=== PATIENT | male | born 1945 | race Caucasian/White ===

== ENCOUNTER 2019-06-04 17:49 | Inpatient (IN) | payer BC, MEDICARE ==
[~2019-06-04] VITALS: Ht 172.7 cm; Wt 75.9 kg
[~2019-06-04 17:49] MED LIST: ESOM20CA PO
[2019-06-04] MEDS ORDERED: NS IV 1000 ML 1,000 ML IV SCH ×2 (18:04→20:31)
--- NOTE | 2019-06-04 18:11 | ED Abdominal Pain ---
General Chief Complaint: Abdominal/GI Problems Stated Complaint: ABDOMEN PAIN History of Present Illness Date Seen by Provider: Jun 04, 2019 Time Seen by Provider: 18:00 Initial Comments 74 year old male presents with jordyn-umbilical abdominal pain that started at 1400 today. Patient reports eating lunch, he was having no abdominal pain, diarrhea or nausea. Denies any chronic history of abdominal problems. He had a normal bowel movement this morning. Timing/Duration: 1-3 Hours Severity/Quality: Moderate Location: Periumbilical Radiation: No Radiation Modifying Factors: Improves With Antacids (took Gaviscon 3 doses since 1400) Associated Symptoms: Denies Symptoms Allergies and Home Medications Allergies Coded Allergies: No Known Drug Allergies (Unverified , 12/24/15) Home Medications Esomeprazole Magnesium 20 Mg Capsule.dr, 20 MG PO DAILY, (Reported) Patient Home Medication List Home Medication List Reviewed: Yes Review of Systems Review of Systems Constitutional: no symptoms reported, see HPI Gastrointestinal: See HPI, Abdominal Pain; Denies Diarrhea, Denies Nausea, Denies Vomiting All Other Systems Reviewed Negative Unless Noted: Yes Past Glyjazh-Qnlxmc-Bjnnbm Hx Past Med/Social Hx: Reviewed Nursing Past Med/Soc Hx Patient Social History Alcohol Use: Regular Use Alcohol Beverage of Choice: Wine Recreational Drug Use: No Smoking Status: Never a Smoker Recent Hopitalizations: No Physical Abuse: No Sexual Abuse: No Mistreated: No Fear: No Immunizations Up To Date Date of Influenza Vaccine: Dec 18, 2015 Seasonal Allergies Seasonal Allergies: No Past Medical History Surgeries: Yes (BILAT INGUINAL HERNIA) Tonsillectomy Respiratory: No Cardiac: No Neurological: No Reproductive Disorders: No Sexually Transmitted Disease: No HIV/AIDS: No Gastrointestinal: Yes Gastroesophageal Reflux, Irritable Bowel Musculoskeletal: No Endocrine: Yes (BOARDERLING DIABETIC) Loss of Vision: Bilateral Hearing Impairment: Denies Cancer: No Psychosocial: No Integumentary: No Blood Disorders: No Adverse Reaction/Blood Tranf: No (N/A) Physical Exam Vital Signs Vital Signs - First Documented 06/04/19 06/04/19 18:03 19:17 Temp 36.9 Pulse 103 Resp 20 B/P (MAP) 166/102 (123) Pulse Ox 97 O2 Delivery Room Air Capillary Refill : Height/Weight/BMI Height: 5'8.00" Weight: 166lbs. 0.0oz. 75.135457gb; 25.2 BMI Method: General Appearance: WD/WN, no apparent distress HEENT: PERRL/EOMI, normal ENT inspection, TMs normal, pharynx normal Neck: non-tender, full range of motion, supple, normal inspection Respiratory: chest non-tender, lungs clear, normal breath sounds Cardiovascular: normal peripheral pulses, regular rate, rhythm, no edema Gastrointestinal: normal bowel sounds, soft, no pulsatile mass; No distended, No guarding, No rebound; tenderness (jordyn-umbilical ); No hernia, No mass Extremities: normal range of motion, non-tender, normal inspection, normal capillary refill Neurologic/Psychiatric: no motor/sensory deficits, alert, normal mood/affect, oriented x 3 Skin: normal color, warm/dry Lymphatic: no adenopathy Progress/Results/Core Measures Results/Orders Lab Results Laboratory Tests Test 06/04/19 18:04 06/04/19 18:39 Range/Units White Blood Count 11.8 H 4.3-11.0 10^3/uL Red Blood Count 4.71 4.35-5.85 10^6/uL Hemoglobin 15.2 13.3-17.7 G/DL Hematocrit 44 40-54 % Mean Corpuscular Volume 93 80-99 FL Mean Corpuscular Hemoglobin 32 25-34 PG Mean Corpuscular Hemoglobin Concent 35 32-36 G/DL Red Cell Distribution Width 13.4 10.0-14.5 % Platelet Count 229 130-400 10^3/uL Mean Platelet Volume 8.8 7.4-10.4 FL Neutrophils (%) (Auto) 84 H 42-75 % Lymphocytes (%) (Auto) 10 L 12-44 % Monocytes (%) (Auto) 6 0-12 % Eosinophils (%) (Auto) 0 0-10 % Basophils (%) (Auto) 0 0-10 % Neutrophils # (Auto) 9.9 H 1.8-7.8 X 10^3 Lymphocytes # (Auto) 1.2 1.0-4.0 X 10^3 Monocytes # (Auto) 0.7 0.0-1.0 X 10^3 Eosinophils # (Auto) 0.0 0.0-0.3 10^3/uL Basophils # (Auto) 0.0 0.0-0.1 10^3/uL Erythrocyte Sedimentation Rate 6 0-30 MM/HR D-Dimer 1.03 H 0.00-0.49 UG/ML Sodium Level 137 135-145 MMOL/L Potassium Level 3.8 3.6-5.0 MMOL/L Chloride Level 98 98-107 MMOL/L Carbon Dioxide Level 28 21-32 MMOL/L Anion Gap 11 5-14 MMOL/L Blood Urea Nitrogen 14 7-18 MG/DL Creatinine 1.28 0.60-1.30 MG/DL Estimat Glomerular Filtration Rate 55 BUN/Creatinine Ratio 11 Glucose Level 246 H 70-105 MG/DL Calcium Level 9.7 8.5-10.1 MG/DL Corrected Calcium 8.5-10.1 MG/DL Total Bilirubin 0.6 0.1-1.0 MG/DL Aspartate Amino Transf (AST/SGOT) 22 5-34 U/L Alanine Aminotransferase (ALT/SGPT) 22 0-55 U/L Alkaline Phosphatase 52 40-136 U/L Lactate Dehydrogenase 189 125-220 U/L C-Reactive Protein High Sensitivity 0.13 0.00-0.50 MG/DL Total Protein 7.4 6.4-8.2 GM/DL Albumin 4.6 H 3.2-4.5 GM/DL Amylase Level 42 25-125 U/L Lipase 7 L 8-78 U/L Procalcitonin 0.02 <0.10 NG/ML Urine Color YELLOW Urine Clarity CLOUDY H Urine pH 8.0 5-9 Urine Specific [place] 1.020 1.016-1.022 Urine Protein NEGATIVE NEGATIVE Urine Glucose (UA) NEGATIVE NEGATIVE Urine Ketones 1+ H NEGATIVE Urine Nitrite NEGATIVE NEGATIVE Urine Bilirubin NEGATIVE NEGATIVE Urine Urobilinogen 0.2 < = 1.0 MG/DL Urine Leukocyte Esterase NEGATIVE NEGATIVE Urine RBC (Auto) NEGATIVE NEGATIVE Urine RBC NONE /HPF Urine WBC NONE /HPF Urine Squamous Epithelial Cells NONE /HPF Urine Crystals PRESENT H /LPF Urine Amorphous Sediment MOD STEPHEN PHOSPHATE H /LPF Urine Bacteria TRACE /HPF Urine Casts NONE /LPF Urine Mucus NEGATIVE /LPF Urine Culture Indicated NO My Orders Orders - KATHARINE PATEL Comprehensive Metabolic Panel (06/04/19 18:04) Lipase (06/04/19 18:04) Amylase (06/04/19 18:04) Ua Culture If Indicated (06/04/19 18:04) Cbc With Automated Diff (3/30/20 18:04) Ed Iv/Invasive Line Start (06/04/19 18:04) Ns Iv 1000 Ml (Sodium Chloride 0.9%) (06/04/19 18:04) Ferritin (06/04/19 18:36) Fibrin Degradation Products (06/04/19 18:36) Procalcitonin (Pct) (06/04/19 18:36) Hs C Reactive Protein (06/04/19 18:36) Erythrocyte Sedimentation Rate (06/04/19 18:36) LDH (06/04/19 18:36) Metoclopramide Oral Liquid (Reglan Oral (06/04/19 18:40) Ct Abdomen/Pelvis W (06/04/19 19:10) Pantoprazole Injection (Protonix Injecti (06/04/19 19:30) Iohexol Injection (Omnipaque 350 Mg/Ml 1 (06/04/19 19:30) Received Contrast (Hold Metformin- Contr (06/04/19 19:30) Ns (Ivpb) (Sodium Chloride 0.9% Ivpb Bag (06/04/19 19:30) Ondansetron Injection (Zofran Injectio (06/04/19 20:00) Ed Iv/Invasive Line Start (06/04/19 20:31) Ns Iv 1000 Ml (Sodium Chloride 0.9%) (06/04/19 20:31) Fentanyl Injection (Sublimaze Injection (06/04/19 20:45) Medications Given in ED Current Medications Medications Dose Ordered Sig/Amie Route Start Time Stop Time Status Last Admin Dose Admin Iohexol 100 ml ONCE ONCE IV 06/04/19 19:30 06/04/19 19:31 DC 06/04/19 19:42 100 ML Ondansetron HCl 4 mg ONCE ONCE IVP 06/04/19 20:00 06/04/19 20:01 DC 06/04/19 19:57 4 MG Pantoprazole 40 mg ONCE ONCE IV 06/04/19 19:30 06/04/19 19:31 DC 06/04/19 19:57 40 MG Sodium Chloride 100 ml ONCE ONCE IV 06/04/19 19:30 06/04/19 19:31 DC 06/04/19 19:42 80 ML Vital Signs/I&O 06/04/19 06/04/19 18:03 19:17 Temp 36.9 Pulse 103 97 Resp 20 18 B/P (MAP) 166/102 (123) 150/91 (110) Pulse Ox 97 99 O2 Delivery Room Air Progress Progress Note : Time: 18:00 Progress Note patient seen and evaluated, will obtain labs and re-evaluate. Normal saline 1 L per IV. Reglan 10 mg orally. [address] of the abdomen with contrast. Protonix 40 mg IV 1944 patient complaining of nausea and vomited one time, will give Zofran [address] results reviewed with the patient, he does report the nausea is better. His pain is worse, will give fentanyl 50 g IV. [address] Tabares per phone, agreed with plan for admission. Spoke to Dr. Chan agreed to consult. 2049 patient reports nausea and pain have improved. We'll continue to give IV f luids and keep nothing by mouth. Diagnostic Imaging Diagonstic Imaging: CT Plain Films/CT/US/NM/MRI: abdomen Comments NAME: JAKE WILLIS Richard [facility] REC#: [id number] PT STATUS: REG ER : 1945 PHYSICIAN: KATHARINE PATEL ADMIT DATE: 06/04/19/ER Signed Date of Exam:06/04/19 CT ABDOMEN/PELVIS W EXAMINATION: CT Abdomen and Pelvis with intravenous contrast. TECHNIQUE: Multiple contiguous axial images were obtained through the abdomen and pelvis after the uneventful administration of intravenous contrast. All CT scans use one or more of the following dose optimizing techniques: automated exposure control, MA and/or KvP adjustment based on a patient size and exam type, or iterative reconstruction. HISTORY: Lower abdominal and pelvic pain. COMPARISON: None available. FINDINGS: The heart is unremarkable. A calcified granuloma is seen in the left lung base. No focal consolidation or suspicious nodules. Dilated loops of small bowel are seen in the mid abdomen. A possible transition point is seen in the mid abdomen just left of midline (image 56 series 2). A small amount of reactive free fluid is seen in the left paracolic gutter. No free air. Stool is seen in the colon. The stomach is distended with ingested contents. The liver, spleen, pancreas, adrenal glands, and kidneys have a normal appearance. A small cyst is seen in the spleen. There is no pathologically enlarged mesenteric or retroperitoneal adenopathy. No acute osseous abnormalities. There is grade 1 anterolisthesis of L4 on L5. Ureters and bladder are grossly normal. There is no free air, loculated collection, or adenopathy in the pelvis. IMPRESSION: 1. Findings consistent with early small bowel obstruction with possible transition point in the mid abdomen just left of midline. A small amount of reactive free fluid is seen in the left paracolic gutter. No free air. Dictated by: Dictated on workstation # [id number] Dict: 06/04/191952 Trans: 06/04/192006 [facility] [id number] Interpreted by: SLOAN BROWNING DO Electronically signed by: SLOAN BROWNING DO 06/04/192006 Reviewed: Reviewed by Me Departure Impression Primary Impression: Small bowel obstruction Additional Impression: Pain in the abdomen Qualified Codes: R10.33 - Periumbilical pain Disposition: ADMITTED INPATIENT Condition: Stable Admissions Decision to Admit Reason: Admit from ER (General) Decision to Admit/Date: Jun 04, 2019 Time/Decision to Admit Time: 20:30 Departure-Patient Inst. Referrals: CYRUS TABARES MD (PCP/Family) Primary Care Physician Copy Copies To 1: CYRUS TABARES MD Copies To 2: KACEY CHAN AMY ARNP Jun 04, 2019 18:11
[2019-06-04 18:12] LABS: BASOPHILS % (AUTO) 0 % (0-10); EOSINOPHILS % (AUTO) 0 % (0-10); HEMATOCRIT 44 % (40-54); HEMOGLOBIN 15.2 G/DL (13.3-17.7); LYMPHOCYTES # (AUTO) 1.2 X 10^3 (1.0-4.0); LYMPHOCYTES % (AUTO) 10 % (12-44); MEAN CORPUSCULAR HEMOGLOBIN 32 PG (25-34); MEAN CORPUSCULAR HGB CONC 35 G/DL (32-36); MEAN CORPUSCULAR VOLUME 93 FL (80-99); MEAN PLATELET VOLUME 8.8 FL (7.4-10.4); MONOCYTES # (AUTO) 0.7 X 10^3 (0.0-1.0); MONOCYTES % (AUTO) 6 % (0-12); NEUTROPHILS # (AUTO) 9.9 X 10^3 (1.8-7.8); NEUTROPHILS % (AUTO) 84 % (42-75); PLATELET COUNT 229 10^3/uL (130-400); RED CELL DISTRIBUTION WIDTH 13.4 % (10.0-14.5); WHITE BLOOD COUNT 11.8 10^3/uL (4.3-11.0)
[2019-06-04 18:32] LABS: ALANINE AMINOTRANSFERASE 22 U/L (0-55); ALBUMIN 4.6 GM/DL (3.2-4.5); ALKALINE PHOSPHATASE 52 U/L (40-136); AMYLASE 42 U/L (25-125); BILIRUBIN,TOTAL 0.6 MG/DL (0.1-1.0); BUN/CREATININE RATIO 11; CALCIUM 9.7 MG/DL (8.5-10.1); CARBON DIOXIDE 28 MMOL/L (21-32); CHLORIDE 98 MMOL/L (98-107); CREATININE SERUM 1.28 MG/DL (0.60-1.30); GFR ESTIMATED 55; GLUCOSE 246 MG/DL (70-105); LIPASE 7 U/L (8-78); POTASSIUM 3.8 MMOL/L (3.6-5.0); SODIUM 137 MMOL/L (135-145); TOTAL PROTEIN 7.4 GM/DL (6.4-8.2)
[2019-06-04] MEDS ORDERED: METOCLOPRAMIDE 10MG/10ML ORAL SOL(REGLAN) UDC PO STA (18:40)
[2019-06-04 18:48] LABS: BILIRUBIN,URINE NEGATIVE (NEGATIVE); COLOR,URINE YELLOW; GLUCOSE, URINE (UA) NEGATIVE (NEGATIVE); KETONES,URINE 1+ (NEGATIVE); LEUKOCYTE ESTERASE ,URINE NEGATIVE (NEGATIVE); NITRITE,URINE NEGATIVE (NEGATIVE); PROTEIN,URINE NEGATIVE (NEGATIVE)
[2019-06-04 18:53] LABS: CLARITY,URINE CLOUDY
[2019-06-04 18:54] LABS: AMORPHOUS SEDIMENT,UR MOD AMOR PHOSPHATE /LPF; BACTERIA,URINE TRACE /HPF
[2019-06-04 19:17] VITALS: BP 150/91
[2019-06-04] MEDS ORDERED: HOLD METFORMIN - RECEIVED CONTRAST 20 ML VIAL IV SCH (19:30)
[2019-06-04] MEDS ORDERED: PANTOPRAZOLE 40 MG (PROTONIX) VIAL IV ONE (19:30)
[2019-06-04] MEDS ORDERED: IOHEXOL 350 MG/ML 100 ML (OMNIPAQUE 350) VIAL IV ONE (19:30)
[2019-06-04] MEDS ORDERED: NS 100 ML (IVPB) BAG IV ONE (19:30)
[2019-06-04] MEDS ORDERED: ONDANSETRON 4 MG/2 ML (SDV) Z0FRAN IVP ONE (20:00)
--- NOTE | 2019-06-04 20:03 | Diagnostic Imaging Report ---
EXAMINATION: CT Abdomen and Pelvis with intravenous contrast. TECHNIQUE: Multiple contiguous axial images were obtained through the abdomen and pelvis after the uneventful administration of intravenous contrast. All CT scans use one or more of the following dose optimizing techniques: automated exposure control, MA and/or KvP adjustment based on a patient size and exam type, or iterative reconstruction. HISTORY: Lower abdominal and pelvic pain. COMPARISON: None available. FINDINGS: The heart is unremarkable. A calcified granuloma is seen in the left lung base. No focal consolidation or suspicious nodules. Dilated loops of small bowel are seen in the mid abdomen. A possible transition point is seen in the mid abdomen just left of midline (image 56 series 2). A small amount of reactive free fluid is seen in the left paracolic gutter. No free air. Stool is seen in the colon. The stomach is distended with ingested contents. The liver, spleen, pancreas, adrenal glands, and kidneys have a normal appearance. A small cyst is seen in the spleen. There is no pathologically enlarged mesenteric or retroperitoneal adenopathy. No acute osseous abnormalities. There is grade 1 anterolisthesis of L4 on L5. Ureters and bladder are grossly normal. There is no free air, loculated collection, or adenopathy in the pelvis. IMPRESSION: 1. Findings consistent with early small bowel obstruction with possible transition point in the mid abdomen just left of midline. A small amount of reactive free fluid is seen in the left paracolic gutter. No free air. Dictated by: Dictated on workstation # [id number]
[2019-06-04] MEDS ORDERED: fentaNYL INJECTION 100 MCG/2 ML AMP IVP ONE (20:45)
--- NOTE | 2019-06-04 20:57 | NUR ---
pt daughter arely [phone] called et. informed of admission to room 409
--- NOTE | 2019-06-04 21:10 | NUR ---
JAKE WILLIS admitted to room 409-1, with an admitting diagnosis of SMALL BOWEL OBSTRUCION, on 06/04/19 from ED via CART, accompanied by STAFF.JAKE WILLIS introduced to surroundings, call light, bed controls, phone, TV, temperature control, lights, meal times, smoking policy, visitor policy, side rail policy, bathrooms and showers. Patient Rights given to patient in the handbook. JAKE WILLIS verbalizes understanding that [facility] is not responsible for the loss or damage to any personal effects or valuables that are kept in the patients posession during their hospitalization.
[2019-06-04] MEDS: NS IV 1000 ML 1,000 ML IV SCH (21:29)
[2019-06-04] MEDS ORDERED: ONDANSETRON 4 MG/2 ML (SDV) Z0FRAN IV PRN (21:30)
[2019-06-04] MEDS: fentaNYL INJECTION 100 MCG/2 ML AMP IV PRN ×2 (21:34→23:55)
[2019-06-04 21:42] VITALS: BP 161/95
--- NOTE | 2019-06-04 23:44 | Consultation - Surgery ---
History of Present Illness History of Present Illness Patient Consulted On(rah/time) 06/04/19 23:44 Date Seen by Provider: Jun 04, 2019 Time Seen by Provider: 23:44 History of Present Illness Consult requested by Dr. Tabares for sbo Patient is a 74 year old male that began having abdominal pain earlier today. Severe pain around umbilical region. No radiation of pain. Constant. At worse was rating at 10/10. Currently about an 8. Having some nausea and one emesis. Patient states nothing is really making better. Nothing really making worse. Abdomen is more distended. than normal. Denies fever sweats chills shortness of breath or chest pain. Had ct scan showing small bowel with some dilated loop of small bowel with possible transition point, dilated stomach. Allergies and Home Medications Allergies Coded Allergies: No Known Drug Allergies (Unverified , 12/24/15) Home Medications Calcium Carbonate 500 Mg Tablet, 500 MG PO DAILY, (Reported) Cholecalciferol (Vitamin D3) 25 Mcg Capsule, 25 MCG PO DAILY, (Reported) Glucosamine Sulfate 2Kcl 1,000 Mg Tablet, 1,000 MG PO DAILY, (Reported) Multivitamin 1 Each Tablet, 1 EACH PO DAILY, (Reported) Vitamin B Complex 1 Each Tablet, 1 EACH PO DAILY, (Reported) Patient Home Medication List Home Medication List Reviewed: Yes Past Pqgyynq-Mdepsi-Ifgrvm Hx Patient Social History Alcohol Use: Regular Use Recreational Drug Use: No Smoking Status: Never a Smoker Recent Foreign Travel: No Contact w/Someone Who Travel: No Recent Infectious Disease Expo: No Recent Hopitalizations: No Immunizations Up To Date Date of Influenza Vaccine: Dec 18, 2015 Seasonal Allergies Seasonal Allergies: No Surgeries History of Surgeries: Yes (BILAT INGUINAL HERNIA) Surgeries: Tonsillectomy Respiratory History of Respiratory Disorde: No Cardiovascular History of Cardiac Disorders: No Neurological History of Neurological Disord: No Reproductive System Hx Reproductive Disorders: No Sexually Transmitted Disease: No HIV/AIDS: No Gastrointestinal History of Gastrointestinal Di: Yes Gastrointestinal Disorders: Gastroesophageal Reflux, Irritable Bowel Musculoskeletal History of Musculoskeletal Dis: No Endocrine History of Endocrine Disorders: Yes (BOARDERLING DIABETIC) HEENT Loss of Vision: Bilateral Hearing Impairment: Denies Cancer History of Cancer: No Psychosocial History of Psychiatric Problem: No Integumentary History of Skin or Integumenta: No Blood Transfusions History of Blood Disorders: No Adverse Reaction to a Blood Tr: No (N/A) Family Medical History Significant Family History: No Pertinent Family Hx Review of Systems-General Constitutional: No chills, No diaphoresis, No fever EENTM: No blurred vision, No double vision, No mouth pain, No throat pain Respiratory: No cough, No dyspnea on exertion Cardiovascular: No chest pain, No palpitations Gastrointestinal: abdominal pain; No nausea, No vomiting Genitourinary: No decreased output, No discharge Musculoskeletal: No back pain, No gout, No joint pain Skin: No change in color, No change in hair/nails Psychiatric/Neurological: Denies Anxiety, Denies Depressed, Denies Emotional Problems Physical Exam-General Problems Physical Exam Vital Signs Vital Signs - First Documented 06/04/19 06/04/19 18:03 19:17 Temp 36.9 Pulse 103 Resp 20 B/P (MAP) 166/102 (123) Pulse Ox 97 O2 Delivery Room Air Capillary Refill : Less Than 3 Seconds General Appearance: WD/WN, no apparent distress HEENT: PERRL/EOMI, normal ENT inspection Neck: full range of motion, supple, normal inspection Respiratory: chest non-tender, no respiratory distress, no accessory muscle use Cardiovascular: regular rate, rhythm Gastrointestinal: no organomegaly, distended, tenderness (periumbilical) Rectal: deferred Back: no CVA tenderness, no vertebral tenderness Extremities: non-tender, normal inspection Neurologic/Psychiatric: lead printer II-XII nml as tested, no motor/sensory deficits, alert, normal mood/affect, oriented x 3 Skin: normal color, warm/dry Lymphatic: no adenopathy Data Review Labs Laboratory Tests 06/04/19 18:04: White Blood Count 11.8H, Red Blood Count 4.71, Hemoglobin 15.2, Hematocrit 44, Mean Corpuscular Volume 93, Mean Corpuscular Hemoglobin 32, Mean Corpuscular Hemoglobin Concent 35, Red Cell Distribution Width 13.4, Platelet Count 229, Mean Platelet Volume 8.8, Neutrophils (%) (Auto) 84H, Lymphocytes (%) (Auto) 10L , Monocytes (%) (Auto) 6, Eosinophils (%) (Auto) 0, Basophils (%) (Auto) 0, Neutrophils # (Auto) 9.9H, Lymphocytes # (Auto) 1.2, Monocytes # (Auto) 0.7, Eosinophils # (Auto) 0.0, Basophils # (Auto) 0.0, Erythrocyte Sedimentation Rate 6, D-Dimer 1.03H, Sodium Level 137, Potassium Level 3.8, Chloride Level 98, Carbon Dioxide Level 28, Anion Gap 11, Blood Urea Nitrogen 14, Creatinine 1.28, Estimat Glomerular Filtration Rate 55, BUN/Creatinine Ratio 11, Glucose Level 246H, Calcium Level 9.7, Corrected Calcium , Total Bilirubin 0.6, Aspartate Amino Transf (AST/SGOT) 22, Alanine Aminotransferase (ALT/SGPT) 22, Alkaline Phosphatase 52, Lactate Dehydrogenase 189, C-Reactive Protein High Sensitivity 0.13, Total Protein 7.4, Albumin 4.6H, Amylase Level 42, Lipase 7L, Procalcitonin 0.02 06/04/19 18:39: Urine Color YELLOW, Urine Clarity CLOUDYH, Urine pH 8.0, Urine Specific [place] 1.020, Urine Protein NEGATIVE, Urine Glucose (UA) NEGATIVE, Urine Ketones 1+H, Urine Nitrite NEGATIVE, Urine Bilirubin NEGATIVE, Urine Urobilinogen 0.2, Urine Leukocyte Esterase NEGATIVE, Urine RBC (Auto) NEGATIVE, Urine RBC NONE, Urine WBC NONE, Urine Squamous Epithelial Cells NONE, Urine Crystals PRESENTH, Urine Amorphous Sediment MOD STEPHEN PHOSPHATEH, Urine Bacteria TRACE, Urine Casts NONE, Urine Mucus NEGATIVE, Urine Culture Indicated NO Assessment/Plan Assessment/Plan Assessment/Plan periumbilical abdominal pain nausea/vomiting partial small bowel obstruction NPO IV hydration Insert NG tube to LIWS small bowel follow through tomorrow conservative measures, may need surgical intervention. Clinical Quality Measures DVT/VTE Risk/Contraindication: Risk Factor Score Per Nursin RFS Level Per Nursing on Admit: 4+=Very High KACEY CHAN DO Jun 04, 2019 23:44
--- NOTE | 2019-06-04 23:45 | NUR ---
DR CHAN MADE ROUNDS TO VISIT PT SHANIKA AT 9645. EXPLAINED TO PT AND RN THAT HIS STOMACH IS VERY LARGE AT THIS TIME AND PT NEEDS NG TUBE PLACED.
[2019-06-04 23:58] VITALS: BP 128/77
--- NOTE | 2019-06-05 00:40 | NUR ---
DENTAL TECHNOLOGIST, MOUNIKA, PLACED NG TUBE. THIS RN LISTENED FOR SOUNDS OF CORRECT PLACEMENT. ORDER FOR 1 VIEW XRAY TO CHECK PLACEMENT. PT TOLERATED WELL. STOMACH CONTENTS ARE EMPTYING INTO CANISTER AND SUCTIONS IS AT LOW INTERMITTENT. WILL CONTINUE TO MONITOR.
[2019-06-05] MEDS: fentaNYL INJECTION 100 MCG/2 ML AMP IV PRN ×3 (01:17→09:58)
[2019-06-05] MEDS ORDERED: morphine INJ 4 MG/ML 1 ML (VIAL/SYRINGE) ONE (01:59)
[2019-06-05] MEDS ORDERED: morphine INJ 10 MG/ML 1ML (SYR OR VIAL) IVP STA (02:02)
--- NOTE | 2019-06-05 02:40 | NUR ---
DR CHAN NOTIFIED AT 0200 THAT PT CONTINUES TO C/O PAIN AT 9 AFTER RECEIVING 25 MCG FENTANYL 40 MINUTES PRIOR, PT SAID THAT PAIN MED DID NOT TOUCH PAIN. DR CHAN NOTIFIED AND ORDERED 2 MG MORPHINE IV ONE TIME. MEDICATION ADMIN AND PT WENT TO SLEEP AFTERWARDS.
[2019-06-05 04:02] VITALS: BP 149/82
[2019-06-05] MEDS: NS IV 1000 ML 1,000 ML IV SCH ×3 (04:19→17:39)
[2019-06-05 05:27] LABS: BASOPHILS % (AUTO) 0 % (0-10); EOSINOPHILS % (AUTO) 0 % (0-10); HEMATOCRIT 44 % (40-54); HEMOGLOBIN 15.4 G/DL (13.3-17.7); LYMPHOCYTES # (AUTO) 0.7 X 10^3 (1.0-4.0); LYMPHOCYTES % (AUTO) 4 % (12-44); MEAN CORPUSCULAR HEMOGLOBIN 32 PG (25-34); MEAN CORPUSCULAR HGB CONC 35 G/DL (32-36); MEAN CORPUSCULAR VOLUME 93 FL (80-99); MEAN PLATELET VOLUME 9.1 FL (7.4-10.4); MONOCYTES # (AUTO) 0.6 X 10^3 (0.0-1.0); MONOCYTES % (AUTO) 4 % (0-12); NEUTROPHILS # (AUTO) 14.3 X 10^3 (1.8-7.8); NEUTROPHILS % (AUTO) 92 % (42-75); PLATELET COUNT 237 10^3/uL (130-400); RED CELL DISTRIBUTION WIDTH 13.5 % (10.0-14.5); WHITE BLOOD COUNT 15.6 10^3/uL (4.3-11.0)
[2019-06-05 05:53] LABS: ALANINE AMINOTRANSFERASE 16 U/L (0-55); ALKALINE PHOSPHATASE 46 U/L (40-136); BILIRUBIN,TOTAL 0.7 MG/DL (0.1-1.0); BUN/CREATININE RATIO 11; CALCIUM 8.3 MG/DL (8.5-10.1); CARBON DIOXIDE 20 MMOL/L (21-32); CHLORIDE 103 MMOL/L (98-107); GFR ESTIMATED > 60; GLUCOSE 271 MG/DL (70-105); POTASSIUM 4.6 MMOL/L (3.6-5.0); SODIUM 135 MMOL/L (135-145); TOTAL PROTEIN 6.5 GM/DL (6.4-8.2)
[2019-06-05 05:55] LABS: BAND NEUTROPHILS 4 %; LYMPHOCYTES % (MANUAL) 3 %; MONOCYTES % (MANUAL) 4 %; NEUTROPHILS % (MANUAL) 89 %; RBC MORPH NORMAL
[2019-06-05] MEDS ORDERED: FLU QUADRIvalent (5+ YOA) 2019-2020 (AFLURIA) 0.5 ML IM ONE (07:15)
--- NOTE | 2019-06-05 07:15 | Diagnostic Imaging Report ---
EXAM: CHEST 1 VIEW, AP/PA ONLY INDICATION: NG tube placement. COMPARISON: 01/06/2011. FINDINGS: Normal heart size and central pulmonary vascularity. No focal pulmonary opacity, pleural effusion or pneumothorax. No acute osseous findings. NG tube tip and side-port within the stomach. IMPRESSION: NG tube tip and side-port in the stomach. Dictated by: Dictated on workstation # [id number]
[2019-06-05 08:00] VITALS: BP 151/89
[2019-06-05] MEDS ORDERED: DIATRIZOATE MEGLUM/SODIUM 37% 120 ML (GASTROGRAFIN) NG ONE (09:00)
[2019-06-05] MEDS ORDERED: CHOL10007 PO (11:23)
[2019-06-05] MEDS ORDERED: VITA1TAB17 PO (11:23)
[2019-06-05] MEDS ORDERED: MULT-178 PO (11:23)
[2019-06-05] MEDS ORDERED: GLUC100016 PO (11:23)
[2019-06-05] MEDS ORDERED: CALC-823 PO (11:23)
--- NOTE | 2019-06-05 11:29 | NUR ---
SPOKE WITH THE PT AND CALLED HIS PCPS OFFICE TO COMPLETE THE MED REC PT STATES HE DOES NOT TAKE ANY PRESCRIPTION MEDICATIONS- I SPOKE WITH DR. CHANDRA OFFICE AND WAS TOLD THE SAME. OTC MEDS: MTV CALCIUM VIT D3 VIT B COMPLEX GLUCOSAMINE I DID UPDATE THE PREFERRED PHARMACY
[2019-06-05 12:00] VITALS: BP 152/73
--- NOTE | 2019-06-05 13:44 | Progress Note - Surgery ---
Subjective Date Seen by a Provider: Jun 05, 2019 Time Seen by a Provider: 13:40 Subjective/Events-last exam Patient had ng tube inserted last night. Small bowel follow through has started. WBC up to 15 K today. Patient still with abdominal pain, varies in intensity, felt better this morning. No nausea or emesis at this time. Denies fever sweats chills shortness of breath or chest pain. No flatus or bm. Objective Exam Vital Signs Date Time Temp Pulse Resp B/P (MAP) Pulse Ox O2 Delivery O2 Flow Rate FiO2 06/05/19 12:00 36.8 90 20 152/73 (99) 93 Room Air 06/05/19 08:00 Room Air 06/05/19 08:00 36.8 111 18 151/89 (109) 94 Room Air 06/05/19 04:02 37.3 85 18 149/82 (104) 95 Room Air 06/04/19 23:58 36.4 96 20 128/77 (94) 94 Room Air 06/04/19 21:42 36.4 72 22 161/95 99 Room Air 06/04/19 21:10 Room Air 06/04/19 20:53 36.8 75 16 141/105 (110) 97 Room Air 06/04/19 19:17 97 18 150/91 (110) 99 Room Air 06/04/19 18:03 36.9 103 20 166/102 (123) 97 I & O0 06/05/19 07:00 Intake Total 1000 ml Output Total 875 ml Balance 125 ml Capillary Refill : Less Than 3 Seconds General Appearance: No Apparent Distress HEENT: PERRL/EOMI Neck: Normal Inspection, Non Tender Respiratory: Chest Non Tender, No Accessory Muscle Use, No Respiratory Distress Cardiovascular: Regular Rate, Rhythm Gastrointestinal: no organomegaly, distended, tenderness (periumbilical) Extremity: Normal Inspection, Non Tender Neurologic/Psychiatric: Alert, Oriented x3, No Motor/Sensory Deficits Skin: Normal Color, Warm/Dry Lymphatic: No Adenopathy Results Lab Laboratory Tests 06/04/19 18:04: White Blood Count 11.8H, Red Blood Count 4.71, Hemoglobin 15.2, Hematocrit 44, Mean Corpuscular Volume 93, Mean Corpuscular Hemoglobin 32, Mean Corpuscular Hemoglobin Concent 35, Red Cell Distribution Width 13.4, Platelet Count 229, Mean Platelet Volume 8.8, Neutrophils (%) (Auto) 84H, Lymphocytes (%) (Auto) 10L , Monocytes (%) (Auto) 6, Eosinophils (%) (Auto) 0, Basophils (%) (Auto) 0, Neutrophils # (Auto) 9.9H, Lymphocytes # (Auto) 1.2, Monocytes # (Auto) 0.7, Eosinophils # (Auto) 0.0, Basophils # (Auto) 0.0, Erythrocyte Sedimentation Rate 6, D-Dimer 1.03H, Sodium Level 137, Potassium Level 3.8, Chloride Level 98, Carbon Dioxide Level 28, Anion Gap 11, Blood Urea Nitrogen 14, Creatinine 1.28, Estimat Glomerular Filtration Rate 55, BUN/Creatinine Ratio 11, Glucose Level 246H, Calcium Level 9.7, Corrected Calcium , Total Bilirubin 0.6, Aspartate Amino Transf (AST/SGOT) 22, Alanine Aminotransferase (ALT/SGPT) 22, Alkaline Phosphatase 52, Lactate Dehydrogenase 189, C-Reactive Protein High Sensitivity 0.13, Total Protein 7.4, Albumin 4.6H, Amylase Level 42, Lipase 7L, Procalcitonin 0.02 06/04/19 18:39: Urine Color YELLOW, Urine Clarity CLOUDYH, Urine pH 8.0, Urine Specific [place] 1.020, Urine Protein NEGATIVE, Urine Glucose (UA) NEGATIVE, Urine Ketones 1+H, Urine Nitrite NEGATIVE, Urine Bilirubin NEGATIVE, Urine Urobilinogen 0.2, Urine Leukocyte Esterase NEGATIVE, Urine RBC (Auto) NEGATIVE, Urine RBC NONE, Urine WBC NONE, Urine Squamous Epithelial Cells NONE, Urine Crystals PRESENTH, Urine Amorphous Sediment MOD STEPHEN PHOSPHATEH, Urine Bacteria TRACE, Urine Casts NONE, Urine Mucus NEGATIVE, Urine Culture Indicated NO 06/05/19 05:11: White Blood Count 15.6H, Red Blood Count 4.75, Hemoglobin 15.4, Hematocrit 44, Mean Corpuscular Volume 93, Mean Corpuscular Hemoglobin 32, Mean Corpuscular Hemoglobin Concent 35, Red Cell Distribution Width 13.5, Platelet Count 237, Mean Platelet Volume 9.1, Neutrophils (%) (Auto) 92H, Lymphocytes (%) (Auto) 4L, Monocytes (%) (Auto) 4, Eosinophils (%) (Auto) 0, Basophils (%) (Auto) 0, Neutrophils # (Auto) 14.3H, Lymphocytes # (Auto) 0.7L, Monocytes # (Auto) 0.6, Eosinophils # (Auto) 0.0, Basophils # (Auto) 0.0, Sodium Level 135, Potassium Level 4.6, Chloride Level 103, Carbon Dioxide Level 20L, Anion Gap 12, Blood Urea Nitrogen 11, Creatinine 1.00, Estimat Glomerular Filtration Rate > 60, BUN/Creatinine Ratio 11, Glucose Level 271H, Calcium Level 8.3L, Corrected Calcium 8.3L, Total Bilirubin 0.7, Aspartate Amino Transf (AST/SGOT) 18, Alanine Aminotransferase (ALT/SGPT) 16, Alkaline Phosphatase 46, Total Protein 6.5, Albumin 4.0, Neutrophils % (Manual) 89, Lymphocytes % (Manual) 3, Monocytes % (Manual) 4, Band Neutrophils 4, Blood Morphology Comment NORMAL Assessment/Plan Assessment/Plan Assessment/Plan periumbilical abdominal pain nausea/vomiting partial small bowel obstruction NPO IV hydration NG tube to LIWS small bowel follow through being done now conservative measures, may need surgical intervention if doesn't resolve and with him having pain. Clinical Quality Measures DVT/VTE Risk/Contraindication: Risk Factor Score Per Nursin RFS Level Per Nursing on Admit: 4+=Very High KACEY CHAN DO Jun 05, 2019 13:43
--- NOTE | 2019-06-05 14:05 | NUR ---
Pastoral care visit.
[2019-06-05 15:33] VITALS: BP 153/76
--- NOTE | 2019-06-05 15:37 | Diagnostic Imaging Report ---
INDICATION: Small bowel obstruction. 120 mL of Gastrografin contrast and 120 mL of water was injected through the patient's indwelling nasogastric tube.. Serial radiographs of the abdomen were then performed. The assembler plastic boat radiograph shows NG tube in stomach. There is some moderate gaseous distention of small bowel loops throughout the abdomen. Initial images demonstrate contrast within the stomach with prompt passage of contrast in the proximal small bowel loops. Procedure was performed out to approximately 7 hours. Contrast is seen extending to somewhat distal small bowel loops, however, no contrast is seen reaching the right colon. Findings likely owing to distal small bowel obstruction. IMPRESSION: Findings suggestive of distal small bowel obstruction. Dictated by: Dictated on workstation # [id number]
[2019-06-05] MEDS: morphine INJ 4 MG/ML 1 ML (VIAL/SYRINGE) IVP PRN ×2 (17:40→21:46)
--- NOTE | 2019-06-05 17:40 | NUR ---
Report given to Alicia IZAGUIRRE
[2019-06-05 20:00] VITALS: BP 144/78
[2019-06-06] VITALS (12 sets, daily range): BP systolic 119–159; BP diastolic 75–89
[2019-06-06] MEDS: NS IV 1000 ML 1,000 ML IV SCH ×4 (00:21→17:30)
[2019-06-06] MEDS: morphine INJ 4 MG/ML 1 ML (VIAL/SYRINGE) IVP PRN (03:53)
--- NOTE | 2019-06-06 09:01 | Progress Note - Surgery ---
Subjective Date Seen by a Provider: Jun 06, 2019 Time Seen by a Provider: 08:57 Subjective/Events-last exam Patient pain slightly better. No flatus or bm. NG tube to LIWS so nausea and emesis improved. Had small bowel follow through suggestive of distal small bowel obstruction. Denies fever sweats chills shortness of breath or chest pain. Objective Exam Vital Signs Date Time Temp Pulse Resp B/P (MAP) Pulse Ox O2 Delivery O2 Flow Rate FiO2 06/06/19 08:00 37.2 93 20 148/81 (103) 94 Room Air 06/06/19 04:00 37.6 89 20 138/75 (96) 93 Room Air 06/06/19 00:00 37.2 96 18 119/76 (90) 93 Room Air 06/05/19 20:00 37.8 92 20 144/78 (100) 96 Room Air 06/05/19 19:55 Room Air 06/05/19 18:16 37.2 06/05/19 15:33 37.2 78 16 153/76 (101) 95 Room Air 06/05/19 12:00 36.8 90 20 152/73 (99) 93 Room Air I & O 06/06/19 07:00 Intake Total 3000 ml Output Total 2350 ml Balance 650 ml Capillary Refill : Less Than 3 Seconds General Appearance: No Apparent Distress HEENT: PERRL/EOMI Neck: Normal Inspection, Non Tender Respiratory: Chest Non Tender, No Accessory Muscle Use, No Respiratory Distress Cardiovascular: Regular Rate, Rhythm Gastrointestinal: no organomegaly, distended, tenderness (peirumbilical) Extremity: Normal Inspection, Non Tender Neurologic/Psychiatric: Alert, Oriented x3, No Motor/Sensory Deficits Skin: Normal Color, Warm/Dry Lymphatic: No Adenopathy Assessment/Plan Assessment/Plan Assessment/Plan periumbilical abdominal pain nausea/vomiting partial small bowel obstruction NPO IV hydration NG tube to LIWS small bowel follow through suggestive of bowel obstruction still no flatus or bm, do not feel this is going to resolve, we discussed risks and benefits of exploratory laparotomy and all other indicated procedures he understands and wishes to proceed. To or. Clinical Quality Measures DVT/VTE Risk/Contraindication: Risk Factor Score Per Nursin RFS Level Per Nursing on Admit: 4+=Very High KACEY CHAN DO Jun 06, 2019 09:01
[2019-06-06] MEDS ORDERED: ONDANSETRON 4 MG/2 ML (SDV) Z0FRAN ONE (10:44)
[2019-06-06] MEDS ORDERED: ROCURONIUM 10 MG/ML 5 ML SYRINGE IV ONE (10:44)
[2019-06-06] MEDS ORDERED: LIDOCAINE PF 2% 5 ML (XYLOCAINE) VIAL ONE (10:44)
[2019-06-06] MEDS ORDERED: SUCCINYLCHOLINE INJ 100 MG/5 ML SYR ONE (10:44)
[2019-06-06] MEDS ORDERED: NEOSTIGMINE 3 MG/3 ML VIAL ONE (10:44)
[2019-06-06] MEDS ORDERED: proPOfol 200 MG/20 ML (DIPRIVAN) VIAL IV ONE (10:44)
[2019-06-06] MEDS ORDERED: fentaNYL INJECTION 100 MCG/2 ML AMP ONE (10:44)
[2019-06-06] MEDS ORDERED: GLYCOPYRROLATE 0.2 MG/ML (ROBINUL) 2 ML VIAL ONE (10:44)
[2019-06-06] MEDS ORDERED: SEVOFLURANE (ULTANE) 15 ML INHAL SOLN ONE (10:44)
[2019-06-06] MEDS ORDERED: MIDAZOLAM 2 MG/2 ML (VERSED) VIAL ONE (10:45)
[2019-06-06] MEDS: LACTATED RINGERS 1,000 ML IV PRN ×2 (11:04→11:45)
[2019-06-06] MEDS: ceFAZolin INJECTION 1,000 MG in WATER (STERILE) FOR INJECTION 10 ML IV NR ×2 (11:20→13:39)
--- NOTE | 2019-06-06 11:28 | NUR ---
PT TO SURGERY VIA BED
[2019-06-06] MEDS ORDERED: PHENYLEPHRINE 100 MCG/ML 10 ML (ANESTHESIA) SYR ONE (12:08)
--- NOTE | 2019-06-06 12:23 | Progress Note-Post Operative ---
Post-Operative Progess Note Surgeon (s)/Technical Services Coordinator (s) Surgeon KACEY CHAN DO Technical Services Coordinator: Dr. Rojas Pre-Operative Diagnosis small bowel obstruction Post-Operative Diagnosis small bowel obstruction, ischemic small bowel (jejunum) Procedure & Operative Findings Date of Procedure 06/06/19 Procedure Performed/Findings exploratory laparotomy, small bowel resection Anesthesia Type general Estimated Blood Loss Estimated blood loss (mL): minimal Specimens/Packing Specimens Removed small bowel (jejunum) KACEY CHAN DO Jun 06, 2019 12:23
--- NOTE | 2019-06-06 12:27 | Anesthesia-General Post-Op ---
General Patient Condition Mental Status/LOC: Same as Preop Cardiovascular: Satisfactory Nausea/Vomiting: Absent Respiratory: Satisfactory Pain: Controlled Complications: Absent Post Op Complications Complications None Follow Up Care/Instructions Patient Instructions None needed. Anesthesia/Patient Condition Patient Condition Patient is doing well, no complaints, stable vital signs, no apparent adverse anesthesia problems. No complications reported per nursing. D/C home per [facility] [place] Criteria: No DANIEL NETTLES CRNA Jun 06, 2019 12:27
[2019-06-06] MEDS ORDERED: morphine INJ 10 MG/ML 1ML (SYR OR VIAL) ONE (12:34)
--- NOTE | 2019-06-06 13:15 | NUR ---
PT RETURNED TO UNIT, REPORT RECEIVED FROM GRACIELA AT BEDSIDE
--- NOTE | 2019-06-06 13:39 | NUR ---
CALLED SURGERY GAVE PREOP KOBE VARELA RN
[2019-06-06] MEDS: metroNIDAZOLE 500MG/100ML IVPB 100 ML IV SCH ×2 (13:44→22:20)
--- NOTE | 2019-06-06 14:15 | OPERATIVE REPORT ---
DATE OF SERVICE: 06/06/2019 PREOPERATIVE DIAGNOSIS: Small-bowel obstruction. POSTOPERATIVE DIAGNOSIS: Small-bowel obstruction and ischemic small bowel jejunum. PROCEDURE: Exploratory laparotomy, small bowel resection. SURGEON: Kacey Johnston DO FIREWORKS MAKER: Dr. Rojas, assisted in retraction, dissection and closure. ANESTHESIA: General. ESTIMATED BLOOD LOSS: Minimal. COMPLICATIONS: None. INDICATIONS: The patient is a 74-year-old male who was admitted with abdominal pain, nausea and vomiting, small bowel obstruction was visualized by CT scan. NG tube was placed for decompression and a small bowel follow through was done suggestive of small bowel obstruction. The patient is having some periumbilical abdominal pain that has been persistent and is not passing any flatus or bowel movement. The patient was discussed risks and benefits of having an exploratory laparotomy and all other indicated procedures performed and he wished to proceed with procedure. Consent was signed in the chart. DESCRIPTION OF PROCEDURE: The patient was taken to the operating suite, was prepped and draped in sterile fashion. Surgical pause was performed. Midline incision was made around the umbilicus and the small bowel was encountered. Dilated small bowel was then brought out through the incision and to a point where the omentum had wrapped around causing obstruction. This was then released and there was an area of jejunum that had a lot of mesenteric edema and the small bowel appeared ischemic. Small bowel was then continued to be ran to the ileocecal valve with one another area with a small adhesion, which was released with an area of more appearing of reactive changes to the terminal ileum and into the mesentery. The small bowel was then ran again from the ileocecal valve all the way to the ligament of Treitz not noting any other abnormality except for the above-mentioned. The distal and proximal to the area of ischemic-appearing bowel. This was then dissected around and a [id number] anastomosis was created using a VINCENT linear stapler. Once the anastomosis was created, two crotch stitches were placed and the LigaSure was used to divide the mesentery. The mesenteric defect was then closed using 3-0 Vicryl. The abdomen was then irrigated with copious amounts of irrigation and suction. The small bowel was then ran again no other changes noted. The fascia was then closed using 1-0 looped PDS in a running fashion and the wound was then irrigated with copious amounts of irrigation and the skin was then closed using alo. The patient tolerated procedure well without any complications. He was taken to recovery room in stable condition. Job ID: [id number] DocumentID: [id number] Dictated Date: 06/06/2019 12:31:57 Spinning Operator Date: 06/06/2019 14:14:34 Dictated By: KACEY JOHNSTON DO
[2019-06-06] MEDS: ceFAZolin INJECTION 1,000 MG in WATER (STERILE) FOR INJECTION 10 ML IV SCH (17:30)
[2019-06-07] VITALS: BP 125/79
[2019-06-07] MEDS: NS IV 1000 ML 1,000 ML IV SCH ×4 (00:14→22:30)
[2019-06-07] MEDS: ceFAZolin INJECTION 1,000 MG in WATER (STERILE) FOR INJECTION 10 ML IV SCH (01:10)
[2019-06-07 04:00] VITALS: BP 130/84
[2019-06-07 05:39] LABS: HEMOGLOBIN 13.3 G/DL (13.3-17.7); MEAN PLATELET VOLUME 9.2 FL (7.4-10.4); RED CELL DISTRIBUTION WIDTH 13.7 % (10.0-14.5)
[2019-06-07 06:03] LABS: BUN/CREATININE RATIO 16; CALCIUM 7.4 MG/DL (8.5-10.1); CARBON DIOXIDE 21 MMOL/L (21-32); CHLORIDE 106 MMOL/L (98-107); CREATININE SERUM 0.82 MG/DL (0.60-1.30); GFR ESTIMATED > 60; GLUCOSE 184 MG/DL (70-105); MAGNESIUM 1.8 MG/DL (1.6-2.4); POTASSIUM 4.1 MMOL/L (3.6-5.0); SODIUM 137 MMOL/L (135-145)
--- NOTE | 2019-06-07 06:13 | NUR ---
PT'S DAUGHTER CALLED THIS RN AT THIS TIME. CORRECT PASSWORD USED. PT UPDATE GIVEN AND ALL QUESTIONS ANSWERED. THIS RN REASSURED FAMILY TO CALL WITH ANY QUESTIONS OR CONCERNS. DAUGHTER THANKED THIS RN. CONVERSATION ENDED.
--- NOTE | 2019-06-07 07:31 | Anesthesia-General Post-Op ---
General Patient Condition Mental Status/LOC: Same as Preop Cardiovascular: Satisfactory Nausea/Vomiting: Absent Respiratory: Satisfactory Pain: Controlled Complications: Absent Post Op Complications Complications None Follow Up Care/Instructions Patient Instructions None needed. Anesthesia/Patient Condition Patient Condition Patient is doing well, no complaints, stable vital signs, no apparent adverse anesthesia problems. No complications reported per nursing. D[place] [facility] [place]: No DANIEL NETTLES CRNA Jun 07, 2019 07:31
[2019-06-07 08:00] VITALS: BP 134/74
--- NOTE | 2019-06-07 08:10 | Consultation - Hospitalist ---
HPI History of Present Illness: HPI/Chief Complaint Denzel Dominguez is a 74-year-old male with no significant past medical history who is admitted with small bowel obstruction. I have been consulted for medical comanagement. He was initially treated with conservative management but ultimately required surgical intervention. He was taken to the operating room yesterday and underwent a partial small bowel resection. This morning he reports that he is feeling good. He denies any abdominal pain. He denies any nausea or vomiting. He says he is very thirsty. He has not been out of bed and walking yet. He has not been passing gas. He denies any fevers or chills. He denies any chest pain or shortness of breath. He has a history of prediabetes. He does not take any prescription medications and is only on vitamin supplementation. Source: patient Exam Limitations: no limitations Date Seen 06/07/19 Attending Physician Zheng Tabares MD PCP Zheng Tabares MD Referring Physician Date of Admission Jun 05, 2019 at 13:43 Home Medications & Allergies Home Medications Reviewed patient Home Medication Reconciliation performed by pharmacy medication reconciliations restaurant maintenance technician and/or nursing. Patients Allergies have been reviewed. Allergies Allergies Coded Allergies No Known Drug Allergies ([id number]/16) Past Sexnnln-Cjiwkn-Weqbrv Hx Past Med/Social Hx: Reviewed Nursing Past Med/Soc Hx Patient Social History Alcohol Use: Regular Use Alcohol Beverage of Choice: Wine Recreational Drug Use: No Smoking Status: Never a Smoker Recent Foreign Travel: No Contact w/other who traveled: No Recent Hopitalizations: No Recent Infectious Disease Expo: No Immunizations Up To Date Date of Influenza Vaccine: Dec 18, 2015 Seasonal Allergies Seasonal Allergies: No Past Medical History Surgeries: Tonsillectomy Reproductive: No Sexually Transmitted Disease: No HIV/AIDS: No Gastrointestinal: Gastroesophageal Reflux, Irritable Bowel Loss of Vision: Bilateral Hearing Impairment: Denies History of Blood Disorders: No Adverse Reaction to Blood Kaplan: No (N/A) Family History No Pertinent Family Hx Review of Systems Constitutional: no symptoms reported EENTM: no symptoms reported Respiratory: no symptoms reported Cardiovascular: no symptoms reported Gastrointestinal: no symptoms reported Genitourinary: no symptoms reported Musculoskeletal: no symptoms reported Skin: no symptoms reported Psychiatric/Neurological: No Symptoms Reported Physical Exam Physical Exam Vital Signs Vital Signs - First Documented 06/04/19 06/04/19 06/06/19 18:03 19:17 12:20 Temp 36.9 Pulse 103 Resp 20 B/P (MAP) 166/102 (123) Pulse Ox 97 O2 Delivery Room Air O2 Flow Rate 10 Capillary Refill : Less Than 3 SecondsLess Than 3 Seconds Height, Weight, BMI Height: 5'8.00" Weight: 166lbs. 0.0oz. [id number]; 25.44 BMI Method: General Appearance: No Apparent Distress, WD/WN Respiratory: Lungs Clear, Normal Breath Sounds, No Accessory Muscle Use, No Respiratory Distress Cardiovascular: Regular Rate, Rhythm, No Edema, No Murmur Gastrointestinal: Soft, Abnormal Bowel Sounds (Hypoactive), Tenderness (Diffuse) Extremity: Normal Inspection, Non Tender, No Pedal Edema Neurologic/Psychiatric: Alert, Oriented x3, No Motor/Sensory Deficits, Normal Mood/Affect Skin: Normal Color, Warm/Dry Results Results/Procedures Labs Laboratory Tests 06/07/19 05:20 Patient resulted labs reviewed. Assessment/Plan Assessment and Plan Assess & Plan/Chief Complaint Small bowel obstruction Status post partial small bowel resection Management per surgery Nothing by mouth NG tube in place Encouraged to ambulate Instructed to use incentive spirometer Prediabetes Obtain A1c Sliding scale insulin DVT prophylaxis: Begin Lovenox when okay with surgery Diagnosis/Problems Diagnosis/Problems (1) Small bowel obstruction Status: Acute (2) S/P small bowel resection Status: Acute Clinical Quality Measures DVT/VTE Risk/Contraindication: Risk Factor Score Per Nursin RFS Level Per Nursing on Admit: 4+=Very High NADER SAMAYOA MD Jun 07, 2019 08:10
[2019-06-07] MEDS: inSUlin ASPART (NovoLOG) 1 UNIT/0.01 ML (CHARGE PER UNIT) SC SCH ×3 (10:14→16:13)
[2019-06-07 12:00] VITALS: BP 147/78
--- NOTE | 2019-06-07 12:02 | NUR ---
PT INFORMED TO LET NURSING STAFF KNOW IF HAS FLATUS SO ROCIO CAN BE NOTIFIED.
--- NOTE | 2019-06-07 12:46 | Progress Note - Surgery ---
Subjective Date Seen by a Provider: Jun 07, 2019 Time Seen by a Provider: 12:41 Subjective/Events-last exam feeling good. No flatus or bm. Pain controlled. ng tube in. denies n/v fever sweats chills shortness of breath or chest pain. Objective Exam Vital Signs Date Time Temp Pulse Resp B/P (MAP) Pulse Ox O2 Delivery O2 Flow Rate FiO2 06/07/19 08:00 Room Air 06/07/19 08:00 37.8 92 20 134/74 (94) 94 Room Air 06/07/19 07:22 Room Air 06/07/19 04:00 37.3 86 17 130/84 (99) 96 Room Air 06/07/19 00:00 37.6 97 18 125/79 (94) 94 Room Air 06/06/19 20:00 Room Air 06/06/19 19:05 38.2 106 20 137/78 (97) 93 Room Air 06/06/19 18:55 38.5 06/06/19 15:57 37.3 102 18 153/83 (106) 95 Room Air 06/06/19 13:15 Room Air 06/06/19 13:15 36.8 83 18 148/87 (107) 95 Room Air 06/06/19 13:15 36.5 18 154/88 (110) 95 Room Air 06/06/19 13:10 18 154/88 (110) 95 Room Air 06/06/19 13:00 20 158/89 (112) 98 Room Air 06/06/19 13:00 Room Air 06/06/19 12:50 16 159/89 (112) 98 OxyMask 3 06/06/19 12:50 OxyMask 3 I & O 06/07/19 07:00 Intake Total 5230 ml Output Total 2772 ml Balance 2458 ml Capillary Refill : Less Than 3 SecondsLess Than 3 Seconds General Appearance: No Apparent Distress, WD/WN HEENT: PERRL/EOMI Respiratory: Lungs Clear, Normal Breath Sounds, No Accessory Muscle Use, No Respiratory Distress Cardiovascular: Regular Rate, Rhythm, No Edema, No Murmur Gastrointestinal: no organomegaly, distended (minimal), tenderness (incisional minimal, cleand dry intact no erythema) Extremity: Normal Inspection, Non Tender, No Pedal Edema Neurologic/Psychiatric: Alert, Oriented x3, No Motor/Sensory Deficits, Normal Mood/Affect Skin: Normal Color, Warm/Dry Lymphatic: No Adenopathy Results Lab Laboratory Tests 06/07/19 05:20: White Blood Count 9.0, Red Blood Count 4.20L, Hemoglobin 13.3, Hematocrit 40, Mean Corpuscular Volume 96, Mean Corpuscular Hemoglobin 32, Mean Corpuscular Hemoglobin Concent 33, Red Cell Distribution Width 13.7, Platelet Count 193, Mean Platelet Volume 9.2, Sodium Level 137, Potassium Level 4.1, Chloride Level 106, Carbon Dioxide Level 21, Anion Gap 10, Blood Urea Nitrogen 13, Creatinine 0.82, Estimat Glomerular Filtration Rate > 60, BUN/Creatinine Ratio 16, Glucose Level 184H, Calcium Level 7.4L, Magnesium Level 1.8 06/07/19 05:40: 06/07/19 10:09: Glucometer 188H 06/07/19 11:12: Glucometer 194H Microbiology 06/06/19 MRSA Screen - Final, Complete MRSA not isolated Assessment/Plan Assessment/Plan Assessment/Plan periumbilical abdominal pain nausea/vomiting partial small bowel obstruction ischemic small bowel s/p ex lap small bowel resection NPO IV hydration NG tube to LIWS no bowel function yet incentive spirometry await bowel function and then start diet. Clinical Quality Measures DVT/VTE Risk/Contraindication: Risk Factor Score Per Nursin RFS Level Per Nursing on Admit: 4+=Very High KACEY CHAN DO Jun 07, 2019 12:46
[2019-06-07] MEDS ORDERED: ENOXAPARIN 30 MG/0.3 ML (LOVENOX) SYR SC SCH (13:00)
[2019-06-07] MEDS: ENOXAPARIN 40 MG/0.4 ML (LOVENOX) SYR SC SCH (14:21)
[2019-06-07 15:49] VITALS: BP 150/87
[2019-06-07 20:43] VITALS: BP 155/80
[2019-06-08 00:09] VITALS: BP 142/78
[2019-06-08 04:52] VITALS: BP 137/77
[2019-06-08] MEDS: NS IV 1000 ML 1,000 ML IV SCH (05:36)
[2019-06-08 05:44] LABS: HEMOGLOBIN 11.8 G/DL (13.3-17.7); MEAN PLATELET VOLUME 9.3 FL (7.4-10.4); RED CELL DISTRIBUTION WIDTH 13.1 % (10.0-14.5); WHITE BLOOD COUNT 8.8 10^3/uL (4.3-11.0)
[2019-06-08 06:02] LABS: BUN/CREATININE RATIO 18; CALCIUM 7.4 MG/DL (8.5-10.1); CARBON DIOXIDE 18 MMOL/L (21-32); CHLORIDE 109 MMOL/L (98-107); CREATININE SERUM 0.71 MG/DL (0.60-1.30); GFR ESTIMATED > 60; GLUCOSE 124 MG/DL (70-105); MAGNESIUM 1.8 MG/DL (1.6-2.4); POTASSIUM 3.7 MMOL/L (3.6-5.0); SODIUM 136 MMOL/L (135-145)
[2019-06-08] MEDS: inSUlin ASPART (NovoLOG) 1 UNIT/0.01 ML (CHARGE PER UNIT) SC SCH ×4 (06:13→20:00)
[2019-06-08 08:00] VITALS: BP 127/75
[2019-06-08] MEDS: LACTATED RINGERS 1,000 ML IV SCH ×3 (08:24→23:30)
[2019-06-08] MEDS: ARTIFICAL TEARS 0.4 ML UNIT DOSE (REFRESH PLUS) OD PRN ×2 (09:47→16:20)
--- NOTE | 2019-06-08 10:17 | Progress Note - Hospitalist ---
Subjective HPI/CC On Admission Date Seen by Provider: Jun 08, 2019 Time Seen by Provider: 09:15 Denzel Dominguez is a 74-year-old male with no significant past medical history who is admitted with small bowel obstruction. I have been consulted for medical comanagement. He was initially treated with conservative management but ultimately required surgical intervention. He was taken to the operating room yesterday and underwent a partial small bowel resection. This morning he reports that he is feeling good. He denies any abdominal pain. He denies any nausea or vomiting. He says he is very thirsty. He has not been out of bed and walking yet. He has not been passing gas. He denies any fevers or chills. He denies any chest pain or shortness of breath. He has a history of prediabetes. He does not take any prescription medications and is only on vitamin supplementation. Subjective/Events-last exam He is not yet passing gas. He has had no bowel movements. He has been walking. He has been using his incentive spirometer. He denies any fevers or chills. He denies any chest pain or shortness of breath. He denies any nausea or vomiting. He has been having a sore throat and that made it difficult to sleep. Objective Exam Vital Signs Vital Signs Date Time Temp Pulse Resp B/P (MAP) Pulse Ox O2 Delivery O2 Flow Rate FiO2 06/08/19 08:00 37.1 84 18 127/75 (92) 95 Room Air 06/06/19 12:50 3 Capillary Refill : Less Than 3 SecondsLess Than 3 Seconds General Appearance: No Apparent Distress, WD/WN HEENT: Other (NG tube in place) Respiratory: Lungs Clear, Normal Breath Sounds, No Respiratory Distress Cardiovascular: Regular Rate, Rhythm, No Edema, No Murmur Gastrointestinal: Soft, Abnormal Bowel Sounds (Hypoactive), Tenderness Extremity: Normal Inspection, Non Tender, No Pedal Edema Neurologic/Psychiatric: Alert, Oriented x3, No Motor/Sensory Deficits, Normal Mood/Affect Skin: Normal Color, Warm/Dry Results/Procedures Lab Laboratory Tests 06/08/19 05:20 Patient resulted labs reviewed. Assessment/Plan Assessment and Plan Assess & Plan/Chief Complaint Small bowel obstruction Status post partial small bowel resection Management per surgery Nothing by mouth NG tube in place Continue ambulation Continue incentive spirometer Type II diabetes mellitus Not on any home medications A1c 7.1% Sliding scale insulin Consider starting metformin on discharge DVT prophylaxis: Lovenox Diagnosis/Problems Diagnosis/Problems (1) Small bowel obstruction Status: Acute (2) S/P small bowel resection Status: Acute (3) T2DM (type 2 diabetes mellitus) Status: Chronic Qualifiers: Diabetes mellitus terminal makeup operator insulin use: without terminal makeup operator use Diabetes mellitus complication status: without complication Qualified Codes: E11.9 - Type 2 diabetes mellitus without complications Clinical Quality Measures DVT/VTE Risk/Contraindication: Risk Factor Score Per Nursin RFS Level Per Nursing on Admit: 4+=Very High NADER SAMAYOA MD Jun 08, 2019 10:17
[2019-06-08 12:00] VITALS: BP 119/78
[2019-06-08] MEDS: ENOXAPARIN 40 MG/0.4 ML (LOVENOX) SYR SC SCH (12:53)
--- NOTE | 2019-06-08 14:56 | Progress Note - Surgery ---
Subjective Date Seen by a Provider: Jun 08, 2019 Time Seen by a Provider: 14:54 Subjective/Events-last exam pain controlled. using IS no flatus or bm ng tube in denies n/v fever sweats chills shortness of breath or chest pain Objective Exam Vital Signs Date Time Temp Pulse Resp B/P (MAP) Pulse Ox O2 Delivery O2 Flow Rate FiO2 06/08/19 12:00 36.5 78 20 119/78 (92) 96 Room Air 06/08/19 08:00 Room Air 06/08/19 08:00 37.1 84 18 127/75 (92) 95 Room Air 06/08/19 04:52 37.2 81 20 137/77 (97) 95 Room Air 06/08/19 00:09 37.4 84 18 142/78 (99) 94 Room Air 06/07/19 20:43 37.8 90 18 155/80 (105) 94 Room Air 06/07/19 19:53 Room Air 06/07/19 15:49 37.8 80 18 150/87 (108) 94 Room Air I & O 06/08/19 07:00 Intake Total 2000 ml Output Total 1650 ml Balance 350 ml Capillary Refill : Less Than 3 SecondsLess Than 3 Seconds General Appearance: No Apparent Distress, WD/WN HEENT: PERRL/EOMI, Other (NG tube in place) Neck: Non Tender, Supple Respiratory: Chest Non Tender, No Accessory Muscle Use, No Respiratory Distress Cardiovascular: Regular Rate, Rhythm, No Edema, No Murmur Gastrointestinal: no organomegaly, distended (minimal), tenderness (incisional pain less, cleand dry intact no erythema) Extremity: Normal Inspection, Non Tender, No Pedal Edema Neurologic/Psychiatric: Alert, Oriented x3, No Motor/Sensory Deficits, Normal Mood/Affect Skin: Normal Color, Warm/Dry Lymphatic: No Adenopathy Results Lab Laboratory Tests 06/07/19 15:49: Glucometer 179H 06/07/19 20:55: Glucometer 133H 06/08/19 05:20: White Blood Count 8.8, Red Blood Count 3.65L, Hemoglobin 11.8L, Hematocrit 35L, Mean Corpuscular Volume 96, Mean Corpuscular Hemoglobin 32, Mean Corpuscular Hemoglobin Concent 34, Red Cell Distribution Width 13.1, Platelet Count 156, Mean Platelet Volume 9.3, Sodium Level 136, Potassium Level 3.7, Chloride Level 109H, Carbon Dioxide Level 18L, Anion Gap 9, Blood Urea Nitrogen 13, Creatinine 0.71, Estimat Glomerular Filtration Rate > 60, BUN/Creatinine Ratio 18, Glucose Level 124H, Calcium Level 7.4L, Magnesium Level 1.8 06/08/19 11:33: Glucometer 126H Microbiology 06/06/19 MRSA Screen - Final, Complete MRSA not isolated Assessment/Plan Assessment/Plan Assessment/Plan periumbilical abdominal pain nausea/vomiting partial small bowel obstruction ischemic small bowel s/p ex lap small bowel resection NPO IV hydration NG tube to LIWS no bowel function yet incentive spirometry scd's/lovenox await bowel function and then start diet. Clinical Quality Measures DVT/VTE Risk/Contraindication: Risk Factor Score Per Nursin RFS Level Per Nursing on Admit: 4+=Very High KACEY CHAN DO Jun 08, 2019 14:56
[2019-06-08 16:00] VITALS: BP 150/76
[2019-06-08 20:30] VITALS: BP 151/75
[2019-06-09] VITALS: BP 148/78
[2019-06-09 04:00] VITALS: BP 131/77
[2019-06-09 04:10] LABS: MEAN PLATELET VOLUME 9.1 FL (7.4-10.4); RED CELL DISTRIBUTION WIDTH 12.9 % (10.0-14.5); WHITE BLOOD COUNT 8.4 10^3/uL (4.3-11.0)
[2019-06-09 04:33] LABS: BUN/CREATININE RATIO 19; CALCIUM 7.8 MG/DL (8.5-10.1); CARBON DIOXIDE 19 MMOL/L (21-32); CHLORIDE 107 MMOL/L (98-107); CREATININE SERUM 0.68 MG/DL (0.60-1.30); GFR ESTIMATED > 60; GLUCOSE 96 MG/DL (70-105); MAGNESIUM 1.8 MG/DL (1.6-2.4); POTASSIUM 3.5 MMOL/L (3.6-5.0); SODIUM 137 MMOL/L (135-145)
[2019-06-09] MEDS: inSUlin ASPART (NovoLOG) 1 UNIT/0.01 ML (CHARGE PER UNIT) SC SCH ×4 (05:07→20:22)
[2019-06-09] MEDS: LACTATED RINGERS 1,000 ML IV SCH ×3 (07:15→23:39)
[2019-06-09 08:00] VITALS: BP 122/70
--- NOTE | 2019-06-09 11:46 | Progress Note - Hospitalist ---
Subjective HPI/CC On Admission Date Seen by Provider: Jun 09, 2019 Time Seen by Provider: 11:30 Denzel Dominguez is a 74-year-old male with no significant past medical history who is admitted with small bowel obstruction. I have been consulted for medical comanagement. He was initially treated with conservative management but ultimately required surgical intervention. He was taken to the operating room yesterday and underwent a partial small bowel resection. This morning he reports that he is feeling good. He denies any abdominal pain. He denies any nausea or vomiting. He says he is very thirsty. He has not been out of bed and walking yet. He has not been passing gas. He denies any fevers or chills. He denies any chest pain or shortness of breath. He has a history of prediabetes. He does not take any prescription medications and is only on vitamin supplementation. Subjective/Events-last exam he reports that he is passing gas. he is about to have his NG tube taken out. He is being started on clear liquids. He seems cheerful. He has been ambulating. He has no other complaints or concerns. Objective Exam Vital Signs Vital Signs Date Time Temp Pulse Resp B/P (MAP) Pulse Ox O2 Delivery O2 Flow Rate FiO2 06/09/19 08:35 Room Air 06/09/19 08:00 36.7 61 21 122/70 (87) 96 06/08/19 20:30 3.00 Capillary Refill : Less Than 3 SecondsLess Than 3 Seconds General Appearance: No Apparent Distress, WD/WN HEENT: Other (NG tube in place) Respiratory: No Respiratory Distress Neurologic/Psychiatric: Alert, Normal Mood/Affect; No Disoriented Skin: Normal Color, Warm/Dry Results/Procedures Lab Laboratory Tests 06/09/19 03:42 Patient resulted labs reviewed. Assessment/Plan Assessment and Plan Assess & Plan/Chief Complaint Small bowel obstruction Status post partial small bowel resection Management per surgery Clear liquids NG tube out today Continue ambulation Continue incentive spirometer Type II diabetes mellitus Not on any home medications A1c 7.1% Sliding scale insulin Consider starting metformin on discharge DVT prophylaxis: Lovenox Diagnosis/Problems Diagnosis/Problems (1) Small bowel obstruction Status: Acute (2) S/P small bowel resection Status: Acute (3) T2DM (type 2 diabetes mellitus) Status: Chronic Qualifiers: Diabetes mellitus senior care insulin use: without senior care use Diabetes mellitus complication status: without complication Qualified Codes: E11.9 - Type 2 diabetes mellitus without complications Clinical Quality Measures DVT/VTE Risk/Contraindication: Risk Factor Score Per Nursin RFS Level Per Nursing on Admit: 4+=Very High NADER SAMAYOA MD Jun 09, 2019 11:46
[2019-06-09 12:00] VITALS: BP 123/64
[2019-06-09] MEDS: ENOXAPARIN 40 MG/0.4 ML (LOVENOX) SYR SC SCH (13:36)
[2019-06-09 16:00] VITALS: BP 122/73
--- NOTE | 2019-06-09 16:31 | Progress Note - Surgery ---
Subjective Date Seen by a Provider: Jun 09, 2019 Time Seen by a Provider: 11:25 Subjective/Events-last exam passing flatus. no pain. using IS and walking no new complaints. denies n/v fever sweats chills shortness of breath or chest pain. Objective Exam Vital Signs Date Time Temp Pulse Resp B/P (MAP) Pulse Ox O2 Delivery O2 Flow Rate FiO2 06/09/19 12:00 36.4 56 21 123/64 (83) 97 Room Air 06/09/19 08:35 Room Air 06/09/19 08:00 36.7 61 21 122/70 (87) 96 Room Air 06/09/19 04:00 36.7 67 20 131/77 (95) 96 Room Air 06/09/19 00:00 37.0 88 20 148/78 (101) 98 Room Air 06/08/19 20:30 37.0 78 20 151/75 (100) 96 Room Air 06/08/19 20:30 96 Room Air 3.00 I & O 06/09/19 07:00 Intake Total 220 ml Output Total 3700 ml Balance -3480 ml Capillary Refill : Less Than 3 SecondsLess Than 3 Seconds General Appearance: No Apparent Distress, WD/WN HEENT: Other (NG tube in place) Neck: Non Tender, Supple Respiratory: No Respiratory Distress Cardiovascular: Regular Rate, Rhythm, No Edema, No Murmur Gastrointestinal: no organomegaly, distended (minimal), tenderness (incisional pain less, cleand dry intact no erythema) Extremity: Normal Inspection, Non Tender, No Pedal Edema Neurologic/Psychiatric: Alert, Normal Mood/Affect; No Disoriented Skin: Normal Color, Warm/Dry Lymphatic: No Adenopathy Results Lab Laboratory Tests 06/08/19 16:38: Glucometer 105 06/08/19 20:14: Glucometer 95 06/09/19 03:42: White Blood Count 8.4, Red Blood Count 3.45L, Hemoglobin 11.0L, Hematocrit 33L, Mean Corpuscular Volume 95, Mean Corpuscular Hemoglobin 32, Mean Corpuscular Hemoglobin Concent 33, Red Cell Distribution Width 12.9, Platelet Count 188, Mean Platelet Volume 9.1, Sodium Level 137, Potassium Level 3.5L, Chloride Level 107, Carbon Dioxide Level 19L, Anion Gap 11, Blood Urea Nitrogen 13, Creatinine 0.68, Estimat Glomerular Filtration Rate > 60, BUN/Creatinine Ratio 19, Glucose Level 96, Calcium Level 7.8L, Magnesium Level 1.8 06/09/19 10:46: Glucometer 115H 06/09/19 15:29: Glucometer 155H Microbiology 06/06/19 MRSA Screen - Final, Complete MRSA not isolated Assessment/Plan Assessment/Plan Assessment/Plan periumbilical abdominal pain nausea/vomiting partial small bowel obstruction ischemic small bowel s/p ex lap small bowel resection Passing flatus start clears and remove ng tube IV hydration incentive spirometry scd's/lovenox Clinical Quality Measures DVT/VTE Risk/Contraindication: Risk Factor Score Per Nursin RFS Level Per Nursing on Admit: 4+=Very High KACEY CHAN DO Jun 09, 2019 16:31
[2019-06-09 20:00] VITALS: BP 152/72
[2019-06-09] MEDS: ARTIFICAL TEARS 0.4 ML UNIT DOSE (REFRESH PLUS) OD PRN (20:22)
[2019-06-10] VITALS: BP 139/73
[2019-06-10 04:00] VITALS: BP 144/75
[2019-06-10 04:11] LABS: HEMOGLOBIN 11.2 G/DL (13.3-17.7); MEAN PLATELET VOLUME 9.3 FL (7.4-10.4); RED CELL DISTRIBUTION WIDTH 12.7 % (10.0-14.5); WHITE BLOOD COUNT 6.1 10^3/uL (4.3-11.0)
[2019-06-10 04:31] LABS: BUN/CREATININE RATIO 14; CALCIUM 7.6 MG/DL (8.5-10.1); CARBON DIOXIDE 20 MMOL/L (21-32); CHLORIDE 107 MMOL/L (98-107); CREATININE SERUM 0.73 MG/DL (0.60-1.30); GFR ESTIMATED > 60; GLUCOSE 136 MG/DL (70-105); MAGNESIUM 1.7 MG/DL (1.6-2.4); POTASSIUM 3.6 MMOL/L (3.6-5.0); SODIUM 138 MMOL/L (135-145)
[2019-06-10] MEDS: inSUlin ASPART (NovoLOG) 1 UNIT/0.01 ML (CHARGE PER UNIT) SC SCH ×4 (05:37→19:41)
[2019-06-10] MEDS: LACTATED RINGERS 1,000 ML IV SCH ×3 (07:57→23:40)
[2019-06-10 08:17] VITALS: BP 129/74
--- NOTE | 2019-06-10 11:15 | Progress Note - Hospitalist ---
Subjective HPI/CC On Admission Date Seen by Provider: Jun 10, 2019 Time Seen by Provider: 09:10 Denzel Dominguez is a 74-year-old male with no significant past medical history who is admitted with small bowel obstruction. I have been consulted for medical comanagement. He was initially treated with conservative management but ultimately required surgical intervention. He was taken to the operating room yesterday and underwent a partial small bowel resection. This morning he reports that he is feeling good. He denies any abdominal pain. He denies any nausea or vomiting. He says he is very thirsty. He has not been out of bed and walking yet. He has not been passing gas. He denies any fevers or chills. He denies any chest pain or shortness of breath. He has a history of prediabetes. He does not take any prescription medications and is only on vitamin supplementation. Subjective/Events-last exam He is brushing his teeth this morning. He has been tolerating the clear liquids well. He has not yet had any bowel movements. He continues to pass gas. He has been up and ambulating. He is using his incentive spirometer. He denies any nausea or vomiting. He denies any abdominal pain. He denies any fevers or chills. He denies any chest pain or shortness of breath. Objective Exam Vital Signs Vital Signs Date Time Temp Pulse Resp B/P (MAP) Pulse Ox O2 Delivery O2 Flow Rate FiO2 06/10/19 08:17 Room Air 06/10/19 08:17 37.1 63 20 129/74 (92) 97 06/08/19 20:30 3.00 Capillary Refill : Less Than 3 SecondsLess Than 3 Seconds General Appearance: No Apparent Distress, WD/WN Neck: Normal Inspection, Supple Respiratory: Lungs Clear, Normal Breath Sounds, No Respiratory Distress Cardiovascular: Regular Rate, Rhythm, No Edema, No Murmur Gastrointestinal: Soft, Abnormal Bowel Sounds (Hypoactive), Distended, Tenderness, Other (Midline abdominal incision clean/dry/intact without any erythema or drainage, alo in place) Extremity: Normal Inspection, Non Tender, No Pedal Edema Neurologic/Psychiatric: Alert, Oriented x3, No Motor/Sensory Deficits, Normal Mood/Affect Skin: Normal Color, Warm/Dry Results/Procedures Lab Laboratory Tests 06/10/19 03:39 Patient resulted labs reviewed. 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
[2019-06-10 11:36] VITALS: BP 126/75
[2019-06-10] MEDS: ENOXAPARIN 40 MG/0.4 ML (LOVENOX) SYR SC SCH (12:11)
--- NOTE | 2019-06-10 12:20 | NUR ---
GAVE REPORT AND TURNED OVER PT CARE TO DMITRIY MARTINEZ, FOR THIS PT.
[2019-06-10 16:00] VITALS: BP 155/76
[2019-06-10] MEDS: ARTIFICAL TEARS 0.4 ML UNIT DOSE (REFRESH PLUS) OD PRN (18:46)
--- NOTE | 2019-06-10 20:12 | Progress Note - Surgery ---
Subjective Date Seen by a Provider: Jun 10, 2019 Time Seen by a Provider: 12:02 Subjective/Events-last exam Patient feeling better today. Not having much pain. Had bm earlier today. Denies n/v fever sweats chills shortness of breath or chest pain. Tolerating liquids. Objective Exam Vital Signs Date Time Temp Pulse Resp B/P (MAP) Pulse Ox O2 Delivery O2 Flow Rate FiO2 06/10/19 16:00 37.3 62 18 155/76 (102) 98 Room Air 06/10/19 11:36 37.2 63 20 126/75 (92) 98 Room Air 06/10/19 08:17 Room Air 06/10/19 08:17 37.1 63 20 129/74 (92) 97 Room Air 06/10/19 04:00 36.9 62 18 144/75 (98) 96 Room Air 06/10/19 00:00 37.0 68 16 139/73 (95) 95 Room Air 06/09/19 20:22 Room Air I & O 06/10/19 07:00 Intake Total 2730 ml Output Total 2150 ml Balance 580 ml Capillary Refill : Less Than 3 SecondsLess Than 3 Seconds General Appearance: No Apparent Distress, WD/WN HEENT: PERRL/EOMI, Normal ENT Inspection Neck: Normal Inspection, Non Tender, Supple Respiratory: Chest Non Tender, No Accessory Muscle Use, No Respiratory Distress Cardiovascular: Regular Rate, Rhythm, No Edema, No Murmur Gastrointestinal: no organomegaly, distended (minimal), tenderness (incisional pain less, cleand dry intact no erythema) Extremity: Normal Inspection, Non Tender, No Pedal Edema Neurologic/Psychiatric: Alert, Oriented x3, No Motor/Sensory Deficits, Normal Mood/Affect Skin: Normal Color, Warm/Dry Lymphatic: No Adenopathy Results Lab Laboratory Tests 06/10/19 03:39: White Blood Count 6.1, Red Blood Count 3.49L, Hemoglobin 11.2L, Hematocrit 33L, Mean Corpuscular Volume 95, Mean Corpuscular Hemoglobin 32, Mean Corpuscular Hemoglobin Concent 34, Red Cell Distribution Width 12.7, Platelet Count 195, Mean Platelet Volume 9.3, Sodium Level 138, Potassium Level 3.6, Chloride Level 107, Carbon Dioxide Level 20L, Anion Gap 11, Blood Urea Nitrogen 10, Creatinine 0.73, Estimat Glomerular Filtration Rate > 60, BUN/Creatinine Ratio 14, Glucose Level 136H, Calcium Level 7.6L, Magnesium Level 1.7, Albumin 2.8L 06/10/19 05:36: Glucometer 136H 06/10/19 10:00: Glucometer 241H 06/10/19 14:53: Glucometer 191H 06/10/19 19:39: Glucometer 161H Microbiology 06/06/19 MRSA Screen - Final, Complete MRSA not isolated Assessment/Plan Assessment/Plan Assessment/Plan periumbilical abdominal pain nausea/vomiting partial small bowel obstruction ischemic small bowel s/p ex lap small bowel resection + bm and flatus, increase diet to dys 2 IV hydration incentive spirometry scd's/lovenox likely home tomorrow Clinical Quality Measures DVT/VTE Risk/Contraindication: Risk Factor Score Per Nursin RFS Level Per Nursing on Admit: 4+=Very High KACEY CHAN DO Jun 10, 2019 20:12
[2019-06-11 00:31] VITALS: BP 157/81
[2019-06-11 05:30] LABS: HEMOGLOBIN 11.5 G/DL (13.3-17.7); MEAN PLATELET VOLUME 9.1 FL (7.4-10.4); RED CELL DISTRIBUTION WIDTH 12.8 % (10.0-14.5); WHITE BLOOD COUNT 6.9 10^3/uL (4.3-11.0)
[2019-06-11 06:00] LABS: BUN/CREATININE RATIO 11; CARBON DIOXIDE 23 MMOL/L (21-32); CHLORIDE 105 MMOL/L (98-107); GFR ESTIMATED > 60; GLUCOSE 146 MG/DL (70-105); MAGNESIUM 1.7 MG/DL (1.6-2.4); POTASSIUM 3.8 MMOL/L (3.6-5.0); SODIUM 139 MMOL/L (135-145)
[2019-06-11] MEDS: inSUlin ASPART (NovoLOG) 1 UNIT/0.01 ML (CHARGE PER UNIT) SC SCH ×2 (06:05→09:41)
[2019-06-11] MEDS: LACTATED RINGERS 1,000 ML IV SCH (06:53)
[2019-06-11 08:00] VITALS: BP 150/75
--- NOTE | 2019-06-11 08:45 | Discharge Summary ---
Diagnosis/Chief Complaint Date of Admission Jun 05, 2019 at 13:43 Date of Discharge Discharge Date: Jun 11, 2019 Primary Care Zheng Tabares MD Discharge Diagnosis (1) Small bowel obstruction Status: Acute (2) S/P small bowel resection Status: Acute (3) T2DM (type 2 diabetes mellitus) Status: Chronic Discharge Summary Procedures/Consulations Dr Johnston- Surgery Discharge Physical Exam Allergies: Coded Allergies: No Known Drug Allergies (Unverified , 12/24/15) Vitals & I&Os Vital Signs Date Time Temp Pulse Resp B/P (MAP) Pulse Ox O2 Delivery O2 Flow Rate FiO2 06/11/19 13:10 37.0 72 20 150/75 96 Room Air 3.00 General Appearance: No Apparent Distress, WD/WN Respiratory: Lungs Clear, No Respiratory Distress Cardiovascular: Regular Rate, Rhythm, No Murmur Neurologic/Psychiatric: Alert, Oriented x3 Hospital Course Pt was admitted due to Small bowel obstruction. He underwent small bowel resection and did well. His diet was slowed advanced and he did well. He had a b owel movement and pain was controlled. He was ambulating in the hallway and requesting discharge home. He is to follow up with Dr Johnston in 2 weeks to follow up this hospital stay. Labs (last 24 hrs) Microbiology 06/06/19 MRSA Screen - Final, Complete MRSA not isolated Patient resulted labs reviewed. Pending Labs Discussion & Recommendations Discharge Planning: <30 minutes discharge planning Discharge Home Medications: Active Scripts Active Reported Glucosamine (Glucosamine Sulfate 2Kcl) 1,000 Mg Tablet 1,000 Mg PO DAILY Vitamin B Complex 1 Each Tablet 1 Each PO DAILY Vitamin D3 (Cholecalciferol (Vitamin D3)) 25 Mcg Capsule 25 Mcg PO DAILY Calcium (Calcium Carbonate) 500 Mg Tablet 500 Mg PO DAILY Multiple Vitamins (Multivitamin) 1 Each Tablet 1 Each PO DAILY Instructions to patient/family Please see electronic discharge instructions given to patient. 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
--- NOTE | 2019-06-11 08:48 | Discharge Inst-Simple/Standard ---
Discharge Inst-Standard Patient Instructions/Follow Up Plan of Care/Instructions/FU: Please continue to take your medications as written. Please follow up with your PCP and with Dr Johnston in 2 weeks. Activity as Tolerated: Yes Discharge Diet: Soft Diet Return to The Hospital For: Abdominal pain, fever, shortness of breath, no BM or liane for >24 hours, if you feel you are getting worse. Planned Outpatient Orders/Ref. Pneu Vac Indicated: Yes RAFAEL MCCURDY MD Jun 11, 2019 08:48
--- NOTE | 2019-06-11 12:58 | Progress Note - Surgery ---
Subjective Date Seen by a Provider: Jun 11, 2019 Time Seen by a Provider: 12:56 Subjective/Events-last exam Patient doing well. wanting to go home. tolerating diet. +bowel function. denies n/v fever sweats chills shortness of breath or chest pain. Objective Exam Vital Signs Date Time Temp Pulse Resp B/P (MAP) Pulse Ox O2 Delivery O2 Flow Rate FiO2 06/11/19 08:00 37.0 72 20 150/75 (100) 96 Room Air 06/11/19 07:50 Room Air 06/11/19 00:31 37.2 69 18 157/81 (106) 96 Room Air 06/10/19 19:30 Room Air 06/10/19 16:00 37.3 62 18 155/76 (102) 98 Room Air I & O 06/11/19 07:00 Intake Total 4510 ml Output Total 2350 ml Balance 2160 ml Capillary Refill : Less Than 3 SecondsLess Than 3 Seconds General Appearance: No Apparent Distress, WD/WN HEENT: PERRL/EOMI, Normal ENT Inspection Neck: Normal Inspection, Non Tender, Supple Respiratory: Chest Non Tender, No Accessory Muscle Use, No Respiratory Distress Cardiovascular: Regular Rate, Rhythm, No Edema, No Murmur Gastrointestinal: no organomegaly, distended (minimal), tenderness (nontender, cleand dry intact no erythema) Extremity: Normal Inspection, Non Tender, No Pedal Edema Neurologic/Psychiatric: Alert, Oriented x3, No Motor/Sensory Deficits, Normal Mood/Affect Skin: Normal Color, Warm/Dry Lymphatic: No Adenopathy Results Lab Laboratory Tests 06/10/19 14:53: Glucometer 191H 06/10/19 19:39: Glucometer 161H 06/11/19 04:18: White Blood Count 6.9, Red Blood Count 3.55L, Hemoglobin 11.5L, Hematocrit 34L, Mean Corpuscular Volume 94, Mean Corpuscular Hemoglobin 32, Mean Corpuscular Hemoglobin Concent 34, Red Cell Distribution Width 12.8, Platelet Count 227, Mean Platelet Volume 9.1, Sodium Level 139, Potassium Level 3.8, Chloride Level 105, Carbon Dioxide Level 23, Anion Gap 11, Blood Urea Nitrogen 8, Creatinine 0.70, Estimat Glomerular Filtration Rate > 60, BUN/Creatinine Ratio 11, Glucose Level 146H, Calcium Level 8.0L, Magnesium Level 1.7 06/11/19 09:28: Glucometer 287H Microbiology 06/06/19 MRSA Screen - Final, Complete MRSA not isolated Assessment/Plan Assessment/Plan Assessment/Plan periumbilical abdominal pain nausea/vomiting partial small bowel obstruction ischemic small bowel s/p ex lap small bowel resection + bm and flatus, tolerating diet IV hydration incentive spirometry home today Clinical Quality Measures DVT/VTE Risk/Contraindication: Risk Factor Score Per Nursin RFS Level Per Nursing on Admit: 4+=Very High KACEY CHAN DO Jun 11, 2019 12:58
[2019-06-11 13:10] VITALS: BP 150/75
--- NOTE | 2019-06-12 11:00 | Physician Query Clarification ---
PQ-Further Specificity Admission/Discharge Admission Date: Jun 05, 2019 at 13:43 Discharge Date: Jun 11, 2019 at 13:10 The medical record reflects the following clinical scenario: History/Risk Factors: partial small bowel obstruction d/t adhesions, DMII, IBS, GERD Clinical Findings: Per OP rpt - Dilated small bowel was then brought out through the incision and to a point where the omentum had wrapped around causing obstruction. This was then released and there was an area of jejunum that had a lot of mesenteric edema and the small bowel appeared ischemic. Treatment: excision jejunum Question: Can you further specify the acuity of the ischemic jejunum per the clinical indicators above? Please document a response in the Progress Notes or Discharge Summary. 1. acute focal ischemia of the jejunum 2. chronic ischemia of the jejunum 3. Other, with explanation of the clinical findings. 4. Clinically undetermined, no explanation for the clinical findings. PHYSICIAN RESPONSE Can you specify per above: 1 Please remember a lack of response to the above will prompt a phone page by [facility]oding staff. In responding to this query, please exercise your independent professional judgment. The purpose of this communication is to more accurately reflect the complexity of your patients condition. The fact that a question is asked does not imply that any particular answer is desired or expected. Thank you for your timely response to this clarification. Requestors name: Ivy THIS PHYSICIAN QUERY FORM IS A PERMANENT PART OF THE MEDICAL RECORD IVY REBOLLAR Jun 12, 2019 11:00 KACEY CHAN DO Jun 25, 2019 11:47
== END 2019-06-11 13:10 | disposition home or self-care (01) | DRG 329 ==
LOC: EDUNIT# 17:49 → ER 17:53 → 4TH 20:40 → UNDOADMOB 20:40 → 4TH 21:00 → INTOOBSV 06-05 13:43 → OBSVTOIN 06-05 13:43 → UNDODISIN 06-11 13:10
PROVIDERS: ADMIT Internal Medicine; ATTEND Internal Medicine
PROC: 0DBA0ZZ Excision of Jejunum, Open Approach (ICD-10-PCS; principal; 2019-06-06 11:09)
DX: K56.51 Intestinal adhesions [bands], with partial obstruction (principal); K55.011 Focal (segmental) acute (reversible) ischemia of small intestine; E11.9 Type 2 diabetes mellitus without complications; K21.9 Gastro-esophageal reflux disease without esophagitis; K58.9 Irritable bowel syndrome, unspecified
CPT/HCPCS: 36415; 71045; 74177; 74250; 80048; 80053; 81000; 82040; 82150; 82728; 82962; 83036; 83615; 83690; 83735; 84145; 85007; 85025; 85027; 85379; 85652; 86141; 87081; 88307; 94664; 96361; 96374; 96375; G0378

== ENCOUNTER 2019-10-11 05:49 | Outpatient (RCR) | payer BC, MEDICARE ==
[~2019-10-11] VITALS: Ht 172 cm; Wt 69.5 kg
[~2019-10-11 05:49] MED LIST changes: +CALC-823 PO; +CHOL10007 PO; +GLUC100016 PO; +MULT-178 PO; +VITA1TAB17 PO
[2019-10-11] MEDS ORDERED: MAGN400C PO (13:41)
== END 2019-10-11 13:58 | disposition home or self-care (01) ==
LOC: PREOP 05:49
PROVIDERS: ATTEND Surgery
DX: Z01.818 Encounter for other preprocedural examination (principal); K43.2 Incisional hernia without obstruction or gangrene

== ENCOUNTER 2019-10-18 09:59 | Day surgery (SDC) | payer BC, MEDICARE ==
[~2019-10-18] VITALS: Ht 172 cm; Wt 69.5 kg
[2019-10-18] VITALS (11 sets, daily range): BP systolic 138–164; BP diastolic 8–102
[~2019-10-18 09:59] MED LIST changes: +MAGN400C PO
[2019-10-18] MEDS: LACTATED RINGERS 1,000 ML IV PRN ×2 (10:30→15:06)
[2019-10-18] MEDS ORDERED: ceFAZolin INJECTION 1,000 MG in WATER (STERILE) FOR INJECTION 10 ML IV ONE (10:30)
--- OUTSIDE RECORDS SUMMARY | 2019-10-18 10:31 | XMS REPORT ---
Author Author [employer] dba developer [employer] [facility] [employer] Address [address] [place] [address] Care Team Providers Care Manufacturing Mechanic Name Role Phone SUSHILA BLANCO, CYRUS Brown Unavailable Unavailable AC BLANCO, CAROLINE Brown Unavailable Unavailable CYRUS CONTI MD Unavailable Unavailable KACEY CHAN DO Unavailable Unavailable Unavailable Unavailable Allergies Allergy Reported Allergen(s) Allergy Type Date of Reaction(s) Care Facility Classificati Onset Provider on Unclassified No Known Drug Allergies 12-24-2015 CYRUS CONTI [facility] Via (2 sources) [facility] ([id number]) Encounters Encounter Date Encounter Type Encounter Diagnosis Care Provider Facility Start: Patient encounter KACEY CHAN DO [facility] Via [facility] 10-11-2019 [facility] End: 10-11-2019 Start: Evaluation and CYRUS CONTI MD [facility] 06-05-2019 management of [facility] inpatient End: 06-11-2019 Start: Patient encounter CYRUS CONTI MD [facility] 06-05-2019 [facility] End: 06-11-2019 Start: Evaluation and CYRUS CONTI MD [facility] [place] [facility] 06-04-2019 management of [facility] inpatient Start: Emergency department CAROLINE SHEN MD [facility] Via [facility] 06-04-2019 patient visit [facility] Start: Patient encounter CYRUS CONTI MD [facility] 12-26-2015 [facility] ([id number]) End: 12-26-2015 Start: Patient encounter CYRUS CONTI MD [facility] 12-24-2015 [facility] ([id number]) Encounter for other CYRUS CONTI MD [facility] preprocedural [facility] examination ([id number]) Medical Equipment No Information Goals No Information Immunizations No Information Interventions No Information Medications No Information Payers No Information Plan of Treatment No Information Problems Problem Problem Date Last Documented Episodic/Chr Provider Classificati Recorded Date onic on Abdominal Diaphragmatic hernia without 10-13-2019 Episodic CYRUS CONTI hernia obstruction or gangrene ; MD Translations: [Incisional hernia (2 sources) without obstruction or gang anastacio] Diabetes Type 2 diabetes mellitus without 07-19-2019 Chroni c CYRUS CONTI mellitus complications MD without complication (11 sources) Diabetes Prediabetes Episodic CYRUS CONTI mellitus without complication (2 sources) Esophageal Gastro-esophageal reflux disease 07-19-2019 Chroni c CYRUS CONTI disorders without esophagitis MD (15 sources) Gastrointest Melena Episodic CYRUS JERNIGANON inal MD hemorrhage (1 source) Intestinal Intestinal adhesions [bands], with 07-19-2019 Epis odic CYRUS CONTI obstruction partial obstruction without hernia (13 sources) Other Irritable bowel syndrome without 07-19-2019 Chroni c CYRUS CONTI gastrointest diarrhea inal disorders (13 sources) Peripheral Vascular disorder of intestine, Chronic CYRUS CONTI and visceral unspecified MD atherosclero sis (2 sources) Peripheral Focal (segmental) acute 07-19-2019 Episodic PHILIP CONTI and visceral (reversible) ischemia of small MD atherosclero intestine sis (11 sources) Procedures Date Procedure Procedure Detail Performing Cl inician Start: EXCISION OF CYRUS CONTI MD 06-06-2019 JEJUNUM, OPEN APPROACH Results No Information Social History No Information Vital Signs No Information Functional Status No Information Mental Status No Information Additional Source Comments This clinical document has been generated using Sp[employer] software that has been certified by the Office of the National Coordinator for Health Information Technology (ONC 15.99.04.3023.[id number].[id number]) and the National Committee for Health Sciences Manager (NCQA, as an eMeasure certified technology). FOR RECORDS PERTAINING TO PATIENTS WHO ARE OR HAVE BEEN ENROLLED IN A CHEMICAL D EPENDENCY/SUBSTANCE ABUSE PROGRAM, SOME INFORMATION MAY BE OMITTED. This clinica l summary was aggregated from multiple sources. Caution should be exercised in using it in the provision of clinical care. This summary normalizes information from multiple sources, and as a consequence, information in this document may ma terially change the coding, format and clinical context of patient data. In christy tion, data may be omitted in some cases. CLINICAL DECISIONS SHOULD BE BASED ON T HE PRIMARY CLINICAL RECORDS. [employer] provides no warranty or guara ntee of the accuracy or completeness of information in this document.The followi ng information is based on time limited clinical information
--- OUTSIDE RECORDS SUMMARY | 2019-10-18 10:32 | XMS REPORT | Continuity of Care Document ---
Author Organization Unknown Address Unknown Phone Unavailable Allergies Active Description Code Type Severity Reaction Onset Reported/Identified Relationship to Patient Clinical Status Yes No Known Drug Allergies [id number] Drug Allergy Unknown N/A 10/11/2019 Medications There is no data. Problems Date Dx Coded Attending Type Code Diagnosis Diagnosed By 02/03/1357 KACEY CHAN DO Ot K43. 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 9 GASTRO-ESOPHAGEAL REFLUX DISEASE WITHOUT 12/24/2015 CYRUS CONTI MD Ot Z01.818 ENCOUNTER FOR OTHER PREPROCEDURAL EXAMIN 12/26/2015 CYRUS CONTI MD Ot K21. 9 GASTRO-ESOPHAGEAL REFLUX DISEASE WITHOUT 12/26/2015 CYRUS CONTI MD Ot K44. 9 DIAPHRAGMATIC HERNIA WITHOUT OBSTRUCTION 12/26/2015 CYRUS CONTI MD Ot K92. 1 MELENA 01/01/2016 CYRUS CONTI MD Ot K21. 9 GASTRO-ESOPHAGEAL REFLUX DISEASE WITHOUT 01/01/2016 CYRUS CONTI MD Ot K44. 9 DIAPHRAGMATIC HERNIA WITHOUT OBSTRUCTION 01/01/2016 CYRUS CONTI MD Ot K92. 1 MELENA 07/21/2018 CYRUS CONTI MD Ot K21. 9 GASTRO-ESOPHAGEAL REFLUX DISEASE WITHOUT 07/21/2018 CYRUS CONTI MD Ot Z01.818 ENCOUNTER FOR OTHER PREPROCEDURAL EXAMIN 06/11/2019 CYRUS CONTI MD Ot E11. 9 TYPE 2 DIABETES MELLITUS WITHOUT COMPLIC 06/11/2019 CYRUS CONTI MD Ot K21. 9 GASTRO-ESOPHAGEAL REFLUX DISEASE WITHOUT 06/11/2019 CYRUS CONTI MD Ot K55.011 FOCAL (SEGMENTAL) ACUTE ISCHEMIA OF SMAL 06/11/2019 CYRUS CONTI MD Ot K55. 9 VASCULAR DISORDER OF INTESTINE, UNSPECIF 06/11/2019 CYRUS CONTI MD Ot K56. 51 INTESTINAL ADHESIONS [BANDS], WITH PARTI 06/11/2019 CYRUS CONTI MD Ot K58. 9 IRRITABLE BOWEL SYNDROME WITHOUT DIARRHE 06/11/2019 CYRUS CONTI MD Ot R73. 03 PREDIABETES 06/15/2019 SUSHILA BLANCO, CYRUS Brown Ot E11. 9 TYPE 2 DIABETES MELLITUS WITHOUT COMPLIC 06/15/2019 CYRUS CONTI MD Ot K21. 9 GASTRO-ESOPHAGEAL REFLUX DISEASE WITHOUT 06/15/2019 CYRUS CONTI MD Ot K55.011 FOCAL (SEGMENTAL) ACUTE ISCHEMIA OF SMAL 06/15/2019 CYRUS CONTI MD Ot K56. 51 INTESTINAL ADHESIONS [BANDS], WITH PARTI 06/15/2019 CYRUS CONTI MD Ot K58. 9 IRRITABLE BOWEL SYNDROME WITHOUT DIARRHE 06/15/2019 CYRUS CONTI MD Ot E11. 9 TYPE 2 DIABETES MELLITUS WITHOUT COMPLIC 06/15/2019 CYRUS CONTI MD Ot K21. 9 GASTRO-ESOPHAGEAL REFLUX DISEASE WITHOUT 06/15/2019 CYRUS CONTI MD Ot K55.011 FOCAL (SEGMENTAL) ACUTE ISCHEMIA OF SMAL 06/15/2019 CYRUS CONTI MD Ot K56. 51 INTESTINAL ADHESIONS [BANDS], WITH PARTI 06/15/2019 CYRUS CONTI MD Ot K58. 9 IRRITABLE BOWEL SYNDROME WITHOUT DIARRHE Procedures Code Description Performed By Per formed On [id number] EX CISION OF JEJUNUM, OPEN APPROACH 06/06/2019 Results Test Result Range Complete blood count (CBC) with automate d white blood cell (WBC) differential - 06/04/19 18:04 Blood leukocytes automated count (number/volume) 11.8 10*3/uL 4.3-11.0 Blood erythrocytes automated count (number/volume) 4.71 10*6/uL 4.35-5.85 Venous blood hemoglobin measurement (mass/volume) 15.2 g/dL 13.3-17.7 Blood hematocrit (volume fraction) 44 % 40-54 Automated erythrocyte mean corpuscular volume 93 [ foz_us] 80-99 Automated erythrocyte mean corpuscular h emoglobin (mass per erythrocyte) 32 pg 25-34 Automated erythrocyte mean corpuscular h emoglobin concentration measurement (mass/volume) 35 g/dL 32-36 Automated erythrocyte distribution width ratio 13. 4 % 10.0- 14.5 Automated blood platelet count (count/volume) 229 10*3/uL 130-400 Automated blood platelet mean volume measurement 8.8 [foz_us] 7.4-10.4 Automated blood neutrophils/100 leukocytes 84 % 42-75 Automated blood lymphocytes/100 leukocytes 10 % 12-44 Blood monocytes/100 leukocytes 6 % 0-12 Automated blood eosinophils/100 leukocytes 0 % 0-10 Automated blood basophils/100 leukocytes 0 % 0-10 Blood neutrophils automated count (number/volume) 9.9 10*3 1.8-7.8 Blood lymphocytes automated count (number/volume) 1.2 10*3 1.0-4.0 Blood monocytes automated count (number/volume) 0. 7 10*3 0.0-1.0 Automated eosinophil count 0.0 10*3/uL 0 .0-0.3 Automated blood basophil count (count/volume) 0.0 10*3/uL 0.0-0.1 Comprehensive metabolic panel - 06/04/19 18:04 Serum or plasma sodium measurement (moles/volume) 137 mmol/L 135-145 Serum or plasma potassium measurement (moles/volume) 3.8 mmol/L 3.6-5.0 Serum or plasma chloride measurement (moles/volume) 98 mmol/L 98-107 Carbon dioxide 28 mmol/L 21-32 Serum or plasma anion gap determination (moles/volume) 11 mmol/L 5-14 Serum or plasma urea nitrogen measurement (mass/volume ) 14 mg/dL 7-18 Serum or plasma creatinine measurement (mass/volume) 1.28 mg/dL 0.60-1.30 Serum or plasma urea nitrogen/creatinine mass ratio 11 NRG Serum or plasma creatinine measurement w ith calculation of estimated glomerular filtration rate 55 NRG Serum or plasma glucose measurement (mass/volume) 246 mg/dL 70-105 Serum or plasma calcium measurement (mass/volume) 9.7 mg/dL 8.5-10.1 Serum or plasma total bilirubin measurement (mass/volu me) 0.6 mg/dL 0.1-1.0 Serum or plasma alkaline phosphatase rubén surement (enzymatic activity/volume) 52 U/L 40-136 Serum or plasma aspartate aminotransfera se measurement (enzymatic activity/volume) 22 U/L 5-34 Serum or plasma alanine aminotransferase measurement (enzymatic activity/volume) 22 U/L 0-55 Serum or plasma protein measurement (mass/volume) 7.4 g/dL 6.4-8.2 Serum or plasma albumin measurement (mass/volume) 4.6 g/dL 3.2-4.5 Serum or plasma amylase measurement (enz ymatic activity/volume) - 06/04/19 18:04 Serum or plasma amylase measurement (enzymatic activit y/volume) 42 U/L 25-125 Lipase - 06/04/19 18:04 Lipase 7 U/L 8-78 Fibrin D-dimer FEU measurement in platel et poor plasma (mass/volume) - 06/04/19 18:04 Fibrin D-dimer FEU measurement in platelet poor plasma (mass/volume) 1.03 ug/mL 0.00-0.49 Serum ragweed IgE antibody assay - 06/03 18:04 Serum ragweed IgE antibody assay 189 U/L 125-220 PROCALCITONIN (PCT) - 06/04/19 18:04 PROCALCITONIN (PCT) 0.02 ng/mL <0.10 Erythrocyte sedimentation rate by gretel gren method - 06/04/19 18:04 Erythrocyte sedimentation rate by westergren method 6 mm 0- 30 Serum or plasma C reactive protein measu rement (mass/volume) - 06/04/19 18:04 Serum or plasma C reactive protein measurement (mass/v olume) 0.13 mg/dL 0.00-0.50 Complete urinalysis with reflex to cultu re - 06/04/19 18:39 Urine color determination YELLOW NRG Urine clarity determination CLOUDY NR G Urine pH measurement by test strip 8.0 5-9 Specific gravity of urine by test strip 1.020 1.016-1.022 Urine protein assay by test strip, semi-quantitative NEGATIVE NEGATIVE Urine glucose detection by automated test strip NE GATIVE NEGATIVE Erythrocytes detection in urine sediment by light micr oscopy NEGATIVE NEGATIVE Urine ketones detection by automated test strip 1+ NEGATIVE Urine nitrite detection by test strip NEGATIVE NEGATIVE Urine total bilirubin detection by test strip NEGA TIVE NEGATIVE Urine urobilinogen measurement by automated test strip (mass/volume) 0.2 mg/dL < = 1.0 Urine leukocyte esterase detection by dipstick NEG ATIVE NEGATIVE Automated urine sediment erythrocyte cou nt by microscopy (number/high power field) NONE NRG Automated urine sediment leukocyte count by microscopy (number/high power field) NONE NRG Bacteria detection in urine sediment by light microsco py TRACE NRG Squamous epithelial cells detection in u rine sediment by light microscopy NONE NRG Crystals detection in urine sediment by light microsco py PRESENT NRG Casts detection in urine sediment by light microscopy NONE NRG Mucus detection in urine sediment by light microscopy NEGATIVE NRG Complete urinalysis with reflex to culture NO NRG Amorphous sediment detection in urine sediment by ligh t microscopy MOD STEPHEN PHOSPHATE NRG Complete blood count (CBC) with automate d white blood cell (WBC) differential - 06/05/19 05:11 Blood leukocytes automated count (number/volume) 15.6 10*3/uL 4.3-11.0 Blood erythrocytes automated count (number/volume) 4.75 10*6/uL 4.35-5.85 Venous blood hemoglobin measurement (mass/volume) 15.4 g/dL 13.3-17.7 Blood hematocrit (volume fraction) 44 % 40-54 Automated erythrocyte mean corpuscular volume 93 [ foz_us] 80-99 Automated erythrocyte mean corpuscular h emoglobin (mass per erythrocyte) 32 pg 25-34 Automated erythrocyte mean corpuscular h emoglobin concentration measurement (mass/volume) 35 g/dL 32-36 Automated erythrocyte distribution width ratio 13. 5 % 10.0- 14.5 Automated blood platelet count (count/volume) 237 10*3/uL 130-400 Automated blood platelet mean volume measurement 9.1 [foz_us] 7.4-10.4 Automated blood neutrophils/100 leukocytes 92 % 42-75 Automated blood lymphocytes/100 leukocytes 4 % 12-44 Blood monocytes/100 leukocytes 4 % 0-12 Automated blood eosinophils/100 leukocytes 0 % 0-10 Automated blood basophils/100 leukocytes 0 % 0-10 Blood neutrophils automated count (number/volume) 14.3 10*3 1.8-7.8 Blood lymphocytes automated count (number/volume) 0.7 10*3 1.0-4.0 Blood monocytes automated count (number/volume) 0. 6 10*3 0.0-1.0 Automated eosinophil count 0.0 10*3/uL 0 .0-0.3 Automated blood basophil count (count/volume) 0.0 10*3/uL 0.0-0.1 Comprehensive metabolic panel - 06/05/19 05:11 Serum or plasma sodium measurement (moles/volume) 135 mmol/L 135-145 Serum or plasma potassium measurement (moles/volume) 4.6 mmol/L 3.6-5.0 Serum or plasma chloride measurement (moles/volume) 103 mmol/L 98-107 Carbon dioxide 20 mmol/L 21-32 Serum or plasma anion gap determination (moles/volume) 12 mmol/L 5-14 Serum or plasma urea nitrogen measurement (mass/volume ) 11 mg/dL 7-18 Serum or plasma creatinine measurement (mass/volume) 1.00 mg/dL 0.60-1.30 Serum or plasma urea nitrogen/creatinine mass ratio 11 NRG Serum or plasma creatinine measurement w ith calculation of estimated glomerular filtration rate > NRG Serum or plasma glucose measurement (mass/volume) 271 mg/dL 70-105 Serum or plasma calcium measurement (mass/volume) 8.3 mg/dL 8.5-10.1 Serum or plasma total bilirubin measurement (mass/volu me) 0.7 mg/dL 0.1-1.0 Serum or plasma alkaline phosphatase rubén surement (enzymatic activity/volume) 46 U/L 40-136 Serum or plasma aspartate aminotransfera se measurement (enzymatic activity/volume) 18 U/L 5-34 Serum or plasma alanine aminotransferase measurement (enzymatic activity/volume) 16 U/L 0-55 Serum or plasma protein measurement (mass/volume) 6.5 g/dL 6.4-8.2 Serum or plasma albumin measurement (mass/volume) 4.0 g/dL 3.2-4.5 CALCIUM CORRECTED 8.3 mg/dL 8.5-10.1 Manual absolute plasma cell count - 05/07 03/26 05:11 Blood monocytes/100 leukocytes 4 % NRG Manual blood segmented neutrophils/100 leukocytes 89 % NRG Blood band neutrophils/100 leukocytes 4 % NRG Manual blood lymphocytes/100 leukocytes 3 % NRG Blood erythrocyte morphology finding identification NORMAL NRG Methicillin resistant Staphylococcus aur eus (MRSA) screening culture - 06/06/19 09:40 Methicillin resistant Staphylococcus aureus (MRSA) scr eening culture NEG NRG Automated blood complete blood count (he mogram) panel - 06/07/19 05:20 Blood leukocytes automated count (number/volume) 9.0 10*3/uL 4.3-11.0 Blood erythrocytes automated count (number/volume) 4.20 10*6/uL 4.35-5.85 Venous blood hemoglobin measurement (mass/volume) 13.3 g/dL 13.3-17.7 Blood hematocrit (volume fraction) 40 % 40-54 Automated erythrocyte mean corpuscular volume 96 [ foz_us] 80-99 Automated erythrocyte mean corpuscular h emoglobin (mass per erythrocyte) 32 pg 25-34 Automated erythrocyte mean corpuscular h emoglobin concentration measurement (mass/volume) 33 g/dL 32-36 Automated erythrocyte distribution width ratio 13. 7 % 10.0- 14.5 Automated blood platelet count (count/volume) 193 10*3/uL 130-400 Automated blood platelet mean volume measurement 9.2 [foz_us] 7.4-10.4 Whole blood basic metabolic panel - 04/26 05:20 Serum or plasma sodium measurement (moles/volume) 137 mmol/L 135-145 Serum or plasma potassium measurement (moles/volume) 4.1 mmol/L 3.6-5.0 Serum or plasma chloride measurement (moles/volume) 106 mmol/L 98-107 Carbon dioxide 21 mmol/L 21-32 Serum or plasma anion gap determination (moles/volume) 10 mmol/L 5-14 Serum or plasma urea nitrogen measurement (mass/volume ) 13 mg/dL 7-18 Serum or plasma creatinine measurement (mass/volume) 0.82 mg/dL 0.60-1.30 Serum or plasma urea nitrogen/creatinine mass ratio 16 NRG Serum or plasma creatinine measurement w ith calculation of estimated glomerular filtration rate > NRG Serum or plasma glucose measurement (mass/volume) 184 mg/dL 70-105 Serum or plasma calcium measurement (mass/volume) 7.4 mg/dL 8.5-10.1 Magnesium - 06/07/19 05:20 Magnesium 1.8 mg/dL 1.6-2.4 Hemoglobin A1c measurement - 06/07/19 05 :40 Blood hemoglobin A1C measurement (mass/volume) 7.1 % 4.0-5.6 MEAN BLOOD GLUCOSE 157 % <=126 Capillary blood glucose measurement by g lucometer (mass/volume) - 06/07/19 10:09 Capillary blood glucose measurement by glucometer (mas s/volume) 188 mg/dL 70-110 Capillary blood glucose measurement by g lucometer (mass/volume) - 06/07/19 11:12 Capillary blood glucose measurement by glucometer (mas s/volume) 194 mg/dL 70-110 Capillary blood glucose measurement by g lucometer (mass/volume) - 06/07/19 15:49 Capillary blood glucose measurement by glucometer (mas s/volume) 179 mg/dL 70-110 Capillary blood glucose measurement by g lucometer (mass/volume) - 06/07/19 20:55 Capillary blood glucose measurement by glucometer (mas s/volume) 133 mg/dL 70-110 Automated blood complete blood count (he mogram) panel - 06/08/19 05:20 Blood leukocytes automated count (number/volume) 8.8 10*3/uL 4.3-11.0 Blood erythrocytes automated count (number/volume) 3.65 10*6/uL 4.35-5.85 Venous blood hemoglobin measurement (mass/volume) 11.8 g/dL 13.3-17.7 Blood hematocrit (volume fraction) 35 % 40-54 Automated erythrocyte mean corpuscular volume 96 [ foz_us] 80-99 Automated erythrocyte mean corpuscular h emoglobin (mass per erythrocyte) 32 pg 25-34 Automated erythrocyte mean corpuscular h emoglobin concentration measurement (mass/volume) 34 g/dL 32-36 Automated erythrocyte distribution width ratio 13. 1 % 10.0- 14.5 Automated blood platelet count (count/volume) 156 10*3/uL 130-400 Automated blood platelet mean volume measurement 9.3 [foz_us] 7.4-10.4 Whole blood basic metabolic panel - 05/24 05:20 Serum or plasma sodium measurement (moles/volume) 136 mmol/L 135-145 Serum or plasma potassium measurement (moles/volume) 3.7 mmol/L 3.6-5.0 Serum or plasma chloride measurement (moles/volume) 109 mmol/L 98-107 Carbon dioxide 18 mmol/L 21-32 Serum or plasma anion gap determination (moles/volume) 9 mmol/L 5-14 Serum or plasma urea nitrogen measurement (mass/volume ) 13 mg/dL 7-18 Serum or plasma creatinine measurement (mass/volume) 0.71 mg/dL 0.60-1.30 Serum or plasma urea nitrogen/creatinine mass ratio 18 NRG Serum or plasma creatinine measurement w ith calculation of estimated glomerular filtration rate > NRG Serum or plasma glucose measurement (mass/volume) 124 mg/dL 70-105 Serum or plasma calcium measurement (mass/volume) 7.4 mg/dL 8.5-10.1 Magnesium - 06/08/19 05:20 Magnesium 1.8 mg/dL 1.6-2.4 Capillary blood glucose measurement by g lucometer (mass/volume) - 06/08/19 11:33 Capillary blood glucose measurement by glucometer (mas s/volume) 126 mg/dL 70-110 Capillary blood glucose measurement by g lucometer (mass/volume) - 06/08/19 16:38 Capillary blood glucose measurement by glucometer (mas s/volume) 105 mg/dL 70-110 Capillary blood glucose measurement by g lucometer (mass/volume) - 06/08/19 20:14 Capillary blood glucose measurement by glucometer (mas s/volume) 95 mg/dL 70-110 Automated blood complete blood count (he mogram) panel - 06/09/19 03:42 Blood leukocytes automated count (number/volume) 8.4 10*3/uL 4.3-11.0 Blood erythrocytes automated count (number/volume) 3.45 10*6/uL 4.35-5.85 Venous blood hemoglobin measurement (mass/volume) 11.0 g/dL 13.3-17.7 Blood hematocrit (volume fraction) 33 % 40-54 Automated erythrocyte mean corpuscular volume 95 [ foz_us] 80-99 Automated erythrocyte mean corpuscular h emoglobin (mass per erythrocyte) 32 pg 25-34 Automated erythrocyte mean corpuscular h emoglobin concentration measurement (mass/volume) 33 g/dL 32-36 Automated erythrocyte distribution width ratio 12. 9 % 10.0- 14.5 Automated blood platelet count (count/volume) 188 10*3/uL 130-400 Automated blood platelet mean volume measurement 9.1 [foz_us] 7.4-10.4 Whole blood basic metabolic panel - 06/24 03:42 Serum or plasma sodium measurement (moles/volume) 137 mmol/L 135-145 Serum or plasma potassium measurement (moles/volume) 3.5 mmol/L 3.6-5.0 Serum or plasma chloride measurement (moles/volume) 107 mmol/L 98-107 Carbon dioxide 19 mmol/L 21-32 Serum or plasma anion gap determination (moles/volume) 11 mmol/L 5-14 Serum or plasma urea nitrogen measurement (mass/volume ) 13 mg/dL 7-18 Serum or plasma creatinine measurement (mass/volume) 0.68 mg/dL 0.60-1.30 Serum or plasma urea nitrogen/creatinine mass ratio 19 NRG Serum or plasma creatinine measurement w ith calculation of estimated glomerular filtration rate > NRG Serum or plasma glucose measurement (mass/volume) 96 mg/dL 70-105 Serum or plasma calcium measurement (mass/volume) 7.8 mg/dL 8.5-10.1 Magnesium - 06/09/19 03:42 Magnesium 1.8 mg/dL 1.6-2.4 Capillary blood glucose measurement by g lucometer (mass/volume) - 06/09/19 10:46 Capillary blood glucose measurement by glucometer (mas s/volume) 115 mg/dL 70-110 Capillary blood glucose measurement by g lucometer (mass/volume) - 06/09/19 15:29 Capillary blood glucose measurement by glucometer (mas s/volume) 155 mg/dL 70-110 Capillary blood glucose measurement by g lucometer (mass/volume) - 06/09/19 19:42 Capillary blood glucose measurement by glucometer (mas s/volume) 208 mg/dL 70-110 Automated blood complete blood count ( mogram) panel - 06/10/19 03:39 Blood leukocytes automated count (number/volume) 6.1 10*3/uL 4.3-11.0 Blood erythrocytes automated count (number/volume) 3.49 10*6/uL 4.35-5.85 Venous blood hemoglobin measurement (mass/volume) 11.2 g/dL 13.3-17.7 Blood hematocrit (volume fraction) 33 % 40-54 Automated erythrocyte mean corpuscular volume 95 [ foz_us] 80-99 Automated erythrocyte mean corpuscular h emoglobin (mass per erythrocyte) 32 pg 25-34 Automated erythrocyte mean corpuscular h emoglobin concentration measurement (mass/volume) 34 g/dL 32-36 Automated erythrocyte distribution width ratio 12. 7 % 10.0- 14.5 Automated blood platelet count (count/volume) 195 10*3/uL 130-400 Automated blood platelet mean volume measurement 9.3 [foz_us] 7.4-10.4 Whole blood basic metabolic panel - 07/24 03:39 Serum or plasma sodium measurement (moles/volume) 138 mmol/L 135-145 Serum or plasma potassium measurement (moles/volume) 3.6 mmol/L 3.6-5.0 Serum or plasma chloride measurement (moles/volume) 107 mmol/L 98-107 Carbon dioxide 20 mmol/L 21-32 Serum or plasma anion gap determination (moles/volume) 11 mmol/L 5-14 Serum or plasma urea nitrogen measurement (mass/volume ) 10 mg/dL 7-18 Serum or plasma creatinine measurement (mass/volume) 0.73 mg/dL 0.60-1.30 Serum or plasma urea nitrogen/creatinine mass ratio 14 NRG Serum or plasma creatinine measurement w ith calculation of estimated glomerular filtration rate > NRG Serum or plasma glucose measurement (mass/volume) 136 mg/dL 70-105 Serum or plasma calcium measurement (mass/volume) 7.6 mg/dL 8.5-10.1 Magnesium - 06/10/19 03:39 Magnesium 1.7 mg/dL 1.6-2.4 Serum or plasma albumin measurement (mas s/volume) - 06/10/19 03:39 Serum or plasma albumin measurement (mass/volume) 2.8 g/dL 3.2-4.5 Capillary blood glucose measurement by g lucometer (mass/volume) - 06/10/19 05:36 Capillary blood glucose measurement by glucometer (mas s/volume) 136 mg/dL 70-110 Capillary blood glucose measurement by g lucometer (mass/volume) - 06/10/19 10:00 Capillary blood glucose measurement by glucometer (mas s/volume) 241 mg/dL 70-110 Capillary blood glucose measurement by g lucometer (mass/volume) - 06/10/19 14:53 Capillary blood glucose measurement by glucometer (mas s/volume) 191 mg/dL 70-110 Capillary blood glucose measurement by g lucometer (mass/volume) - 06/10/19 19:39 Capillary blood glucose measurement by glucometer (mas s/volume) 161 mg/dL 70-110 Automated blood complete blood count (he mogram) panel - 06/11/19 04:18 Blood leukocytes automated count (number/volume) 6.9 10*3/uL 4.3-11.0 Blood erythrocytes automated count (number/volume) 3.55 10*6/uL 4.35-5.85 Venous blood hemoglobin measurement (mass/volume) 11.5 g/dL 13.3-17.7 Blood hematocrit (volume fraction) 34 % 40-54 Automated erythrocyte mean corpuscular volume 94 [ foz_us] 80-99 Automated erythrocyte mean corpuscular h emoglobin (mass per erythrocyte) 32 pg 25-34 Automated erythrocyte mean corpuscular h emoglobin concentration measurement (mass/volume) 34 g/dL 32-36 Automated erythrocyte distribution width ratio 12. 8 % 10.0- 14.5 Automated blood platelet count (count/volume) 227 10*3/uL 130-400 Automated blood platelet mean volume measurement 9.1 [foz_us] 7.4-10.4 Whole blood basic metabolic panel - 08/24 04:18 Serum or plasma sodium measurement (moles/volume) 139 mmol/L 135-145 Serum or plasma potassium measurement (moles/volume) 3.8 mmol/L 3.6-5.0 Serum or plasma chloride measurement (moles/volume) 105 mmol/L 98-107 Carbon dioxide 23 mmol/L 21-32 Serum or plasma anion gap determination (moles/volume) 11 mmol/L 5-14 Serum or plasma urea nitrogen measurement (mass/volume ) 8 mg/dL 7-18 Serum or plasma creatinine measurement (mass/volume) 0.70 mg/dL 0.60-1.30 Serum or plasma urea nitrogen/creatinine mass ratio 11 NRG Serum or plasma creatinine measurement w ith calculation of estimated glomerular filtration rate > NRG Serum or plasma glucose measurement (mass/volume) 146 mg/dL 70-105 Serum or plasma calcium measurement (mass/volume) 8.0 mg/dL 8.5-10.1 Magnesium - 06/11/19 04:18 Magnesium 1.7 mg/dL 1.6-2.4 Capillary blood glucose measurement by g lucometer (mass/volume) - 06/11/19 09:28 Capillary blood glucose measurement by glucometer (mas s/volume) 287 mg/dL 70-110 Capillary blood glucose measurement by g lucometer (mass/volume) - 10/18/19 10:15 Capillary blood glucose measurement by glucometer (mas s/volume) 153 mg/dL 70-110 Encounters ACCT No. Visit Date/Time Discharge Status Pt. Type Provider Facility Loc./Unit Complaint [id number] 10/11/2019 05:49:00 13:58:00 DIS Outpatient KACEY CHAN DO [facility] PREOP INCISIONAL HERNIA [id number] 06/05/2019 13:43:00 13:10:00 DIS Inpatient CYRUS CONTI MD [facility] 4TH SMALL BOWEL OBSTRUCTION ,ABD PAIN [id number] 12/26/2015 07:00:00 09:10:00 DIS Outpatient CYRUS CONTI MD [facility] GERD [id number] 12/24/2015 05:49:00 23:59:59 CLS Outpatient CYRUS CONTI MD [facility] PREOP GERD [id number] 10/18/2019 11:45:00 P EN Preadmit KACEY CHAN DO [facility] INCISIONAL HERNIA [id number] 09/10/2011 07:56:00 Document Registration [id number] 09/09/2011 07:19:00 Document Registration [id number] 01/06/2011 13:43:00 Document Registration
[2019-10-18 10:45] LABS: BASOPHILS % (AUTO) 0 % (0-10); EOSINOPHILS # (AUTO) 0.1 10^3/uL (0.0-0.3); EOSINOPHILS % (AUTO) 1 % (0-10); HEMATOCRIT 44 % (40-54); LYMPHOCYTES # (AUTO) 1.3 X 10^3 (1.0-4.0); LYMPHOCYTES % (AUTO) 19 % (12-44); MEAN CORPUSCULAR HEMOGLOBIN 32 PG (25-34); MEAN CORPUSCULAR HGB CONC 34 G/DL (32-36); MEAN CORPUSCULAR VOLUME 92 FL (80-99); MEAN PLATELET VOLUME 9.2 FL (7.4-10.4); MONOCYTES # (AUTO) 0.6 X 10^3 (0.0-1.0); MONOCYTES % (AUTO) 9 % (0-12); NEUTROPHILS # (AUTO) 4.9 X 10^3 (1.8-7.8); NEUTROPHILS % (AUTO) 72 % (42-75); PLATELET COUNT 189 10^3/uL (130-400); RED CELL DISTRIBUTION WIDTH 13.9 % (10.0-14.5); WHITE BLOOD COUNT 6.8 10^3/uL (4.3-11.0)
--- NOTE | 2019-10-18 12:55 | Progress Note-Pre Operative ---
Pre-Operative Progress Note H&P Reviewed The H&P was reviewed, patient examined and no changes noted. Date Seen by Provider: Oct 18, 2019 Time Seen by Provider: 12:55 Date H&P Reviewed: Oct 18, 2019 Time H&P Reviewed: 12:55 Pre-Operative Diagnosis: incisional hernia KACEY CHAN DO Oct 18, 2019 12:55
[2019-10-18] MEDS ORDERED: BUP/EPI 0.5% 1:200,000 (MARCAINE) 10ML VIAL IJ ONE (13:19)
[2019-10-18] MEDS ORDERED: fentaNYL INJECTION 100 MCG/2 ML AMP ONE (13:43)
[2019-10-18] MEDS ORDERED: MIDAZOLAM 2 MG/2 ML (VERSED) VIAL ONE (13:43)
[2019-10-18] MEDS ORDERED: proPOfol 200 MG/20 ML (DIPRIVAN) VIAL IV ONE (13:45)
[2019-10-18] MEDS ORDERED: LIDOCAINE PF 2% 5 ML (XYLOCAINE) VIAL ONE (13:45)
[2019-10-18] MEDS ORDERED: ROCURONIUM 10 MG/ML 5 ML SYRINGE IV ONE (13:45)
[2019-10-18] MEDS ORDERED: SEVOFLURANE (ULTANE) 15 ML INHAL SOLN ONE ×4 (14:28→14:49)
[2019-10-18] MEDS ORDERED: ONDANSETRON 4 MG/2 ML (SDV) Z0FRAN ONE (14:43)
[2019-10-18] MEDS ORDERED: ATROPINE INJ 0.4 MG/ML SDV ONE (14:43)
[2019-10-18] MEDS ORDERED: NEOSTIGMINE 3 MG/3 ML VIAL ONE (15:22)
[2019-10-18] MEDS ORDERED: GLYCOPYRROLATE 0.2 MG/ML (ROBINUL) 2 ML VIAL ONE (15:22)
--- NOTE | 2019-10-18 15:36 | Progress Note-Post Operative ---
Post-Operative Progess Note Surgeon (s)/Locomotive Firer/Fireman (s) Surgeon KACEY CHAN DO Locomotive Firer/Fireman: Dr. Rojas to assiste in retraction dissection and closure Pre-Operative Diagnosis incisional hernia Post-Operative Diagnosis same Procedure & Operative Findings Date of Procedure 10/18/19 Procedure Performed/Findings PROCEDURE: Laparoscopic incisional hernia repair with mesh. COMPLICATIONS: None. INDICATIONS: The patient is a 74, male with an incisional hernia, which has continued to increase in size and cause discomfort. The patient was explained the risk and benefits of the procedure and wished to proceed with the procedure. Consent was signed on the chart. DESCRIPTION OF PROCEDURE: The patient was taken into the operating suite, prepped and draped in sterile fashion. Surgical pause was performed. Local anesthetic was infiltrated in left upper quadrant. A 15 blade scalpel was used to make a small skin incision. Cautery was used to dissect down to the fascia, which was then scored and divided the muscle, went through the posterior sheath and a balloon trocar was inserted into the abdomen. The abdomen was then insufflated. Incisional hernia of multiple small hernias. Multiple adhesions of omentum that was adhered to jef abdominal wall. A 5 mm trocar was placed in the right lower quadrant and a 5 mm trocar was placed in left lower quadrant. [id number] Echo Ventralight mesh was then inserted in the abdomen grabbed through the stab incision. The balloon was inflated on the mesh. Circumferential tacks were placed with a SecureStrap Tacker. The balloon was then removed and inner crown was created as well. The mesh was tacked with pressure being decreased. The 12 mm fascial defect was then closed using 0 Vicryl. The abdomen was then desufflated,the trocars were removed. The skin was then closed using 4-0 Monocryl in a running subcuticular fashion. The abdomen was washed and dried and Skin Affix was placed over the incisions. The patient tolerated procedure well without any complications. She was taken to recovery room in stable condition. Anesthesia Type general Estimated Blood Loss Estimated blood loss (mL): min Specimens/Packing Specimens Removed KACEY Cordero DO Oct 18, 2019 15:36
[2019-10-18] MEDS ORDERED: DOCU-143 PO (15:37)
[2019-10-18] MEDS ORDERED: HYDR-4226 PO (15:37)
--- NOTE | 2019-10-18 15:38 | Discharge Inst-Simple/Standard ---
Discharge Inst-Standard Discharge Medications New, Converted or Re-Newed RX: RX on Chart Patient Instructions/Follow Up Plan of Care/Instructions/FU: 2 weeks Vickie Activity as Tolerated: No Discharge Diet: Regular Diet Other Inst to Patient Follow up Appt: Make appointment for 2 week. Instructions: No lifting greater than 10 pounds. No strenuous activity. May shower in 24 hours, no tub bath or soaking. Use incentive spirometer at home as directed. No Smoking Skin/Wound Care: You have special glue over your incision that will fall off on it's own. Symptoms to Report: Appetite Changes, Extremity Discoloration, Numbness/Tingling, Swelling Increased, Bleeding Excessive, Eyesight Changes, Pain Increased, Urine Color Change, Constipation(Persistent), Fever over 101 degree F, Pain/Pressure in chest, Urinating Difficulty, Cough Up/Vomit Blood, Heart Beat Irreg/Pounding, Pain/Pressure in jaw, Vaginal Bleeding Increase, Cramps in feet or legs, Lightheadedness, Pain/Pressure in shoulder, Diarrhea(Persistent), Memory Changes Suddenly, Questions/Concerns, Weight gain consecutive days, Dizziness/Fainting, Nausea/Vomiting, Shortness of Breath, Weight gain over 2 pounds If questions or concerns contact your physician Or seek help at emergency department. KACEY CHAN DO Oct 18, 2019 15:38
[2019-10-18] MEDS ORDERED: ONDANSETRON 4 MG/2 ML (SDV) Z0FRAN IVP PRN (15:45)
[2019-10-18] MEDS ORDERED: HYDROmorphone 2 MG/ML VIAL (DILAUDID) IV ONE (15:45)
[2019-10-18] MEDS ORDERED: morphine INJ 10 MG/ML 1ML (SYR OR VIAL) IVP ONE (15:45)
--- NOTE | 2019-10-18 17:57 | Anesthesia-General Post-Op ---
General Patient Condition Mental Status/LOC: Same as Preop Cardiovascular: Satisfactory Nausea/Vomiting: Absent Respiratory: Satisfactory Pain: Controlled Complications: Absent Post Op Complications Complications None Follow Up Care/Instructions Patient Instructions None needed. Anesthesia/Patient Condition Patient Condition Patient was seen after the procedure and he was doing well, no complaints, stable vital signs, no apparent adverse anesthesia problems. AKASH LENTZ DO Oct 18, 2019 17:57
== END 2019-10-18 17:50 | disposition home or self-care (01) ==
LOC: SDC 09:59
PROVIDERS: ATTEND Surgery
DX: K43.2 Incisional hernia without obstruction or gangrene (principal); K21.9 Gastro-esophageal reflux disease without esophagitis; K58.9 Irritable bowel syndrome, unspecified; Z11.2 Encounter for screening for other bacterial diseases
CPT/HCPCS: 36415; 82962; 85025; 87081